=== PATIENT | female | born 1970 | race Caucasian/White ===

== ENCOUNTER 2018-12-11 05:04 | Emergency (ER) | payer OTHER, SELFPAY ==
[2018-12-11 05:10] VITALS: BP 127/80; PULSE 90; RESP 20; TEMP 36.4; O2SAT 96; BMI 20.7
--- NOTE | 2018-12-11 05:30 | ED.HA ---
HPI - Headache General Chief Complaint: Headache Stated Complaint: states migraine across forehead Time Seen by Provider: 12/11/18 05:24 Source: patient Mode of arrival: ambulatory Limitations: no limitations History of Present Illness HPI Narrative: Patient is a 48-year-old female history of migraine headaches presenting with worst headache. She states it started about yesterday 4:00 a.m. in the afternoon progressively gotten worse. 2 she took 2 sumatriptan which usually helps with her headaches however this 1 is not working. She is typically photosensitive however this 1 she is not photosensitive. She vomited twice last evening and twice this morning. No weakness numbness or tingling. No neck pain is afebrile. MD Complaint: headache Onset (ago): day(s) (1) Location: frontal Severity: severe Quality: throbbing Relieving factors: nothing Exacerbating factors: none Related Data Home Medications Medication Instructions Recorded Confirmed FERROUS SULFATE (#IRON) 648 mg PO Q DAY #0 01/08/11 Flaxseed Oil (#FLAXSEED OIL) 1,000 mg PO Q DAY #0 01/08/11 VITAMIN B COMPLEX ([id number]) 1 cap PO Q DAY #0 01/08/11 cetirizine 10 mg PO Q DAY #0 01/08/11 cholecalciferol (vitamin D3) 2,000 iu PO Q DAY #0 01/08/11 [Vitamin D3] niacin 50 mg PO Q DAY #0 01/08/11 Previous Rx's Medication Instructions Recorded norethindrone ac-eth estradiol 1 tab PO Q DAY #3 pac 08/28/16 [Loestrin 08/24 (21)] DIPHENHYDRAMINE/LIDO VISC/MAALOX 0 ml PO Q4HP PRN #100 ml 10/28/16 1:1:1~ penicillin V potassium 500 mg PO TID #30 tab 10/28/16 prednisone 0 PO QDAY #7 tab 11/27/16 sulfamethoxazole-trimethoprim 1 tab PO Q12H #20 tab 11/28/16 ondansetron 4 mg PO Q6-8H PRN #10 tab 12/11/18 Allergies Allergy/AdvReac Type Severity Reaction Status Date / Time No Allergy Information Allergy Verified 12/11/18 06:25 Available Review of Systems Review of Systems ROS Unobtainable: All systems reviewed & are unremarkable except as noted in HPI and below Constitutional Denies chills, Denies fever(s), Reports headache(s), Denies lethargy and Denies weakness Eyes Denies change in vision, Denies eye discharge, Denies irritation and Denies loss of vision ENT Ears, Nose, Mouth, and Throat: Denies change in voice, Reports headache(s), Denies neck pain and Denies sore throat Cardiovascular Denies chest pain, Denies irregular heart rhythm, Denies lightheadedness, Denies palpitations, Denies dyspnea, Denies dyspnea on exertion and Denies orthopnea Respiratory Denies cough, Denies dyspnea, Denies dyspnea on exertion and Denies wheezing Gastrointestinal Gastrointestinal: Denies abdominal pain, Denies change in bowel habits, Denies diarrhea, Denies nausea and Denies vomiting Genitourinary Denies hematuria, Denies flank pain, Denies urinary incontinence and Denies urinary urgency Musculoskeletal Denies neck pain Neurologic Reports headache(s), Denies loss of vision and Denies weakness Endocrine Denies palpitations Allergic/Immunologic Denies wheezing [facility] Medical History Migraine (Acute) Surgical History Status post delivery Social History Smoking Status: Never smoker Social History Smoking Status: Never smoker Exam Initial Vital Signs Initial Vital Signs: Vital Signs Temperature 97.5 F L 12/11/18 05:10 Pulse Rate 90 12/11/18 05:10 Respiratory Rate 20 12/11/18 05:10 Blood Pressure 127/80 12/11/18 05:10 Pulse Oximetry 96 12/11/18 05:10 GENERAL: The patient is is in pain in dark room HEENT: Head atraumatic,EOMI, pupils reactive, face symmetric, moist mucous membranes CARDIOVASCULAR: Regular rate and rhythm without murmurs, rubs or gallops. RESPIRATORY: Breath sounds equal bilaterally, no wheezes rales or rhonchi. ABDOMEN: Soft, nontender. Normoactive bowel sounds all 4 quadrants. No guarding or rebound. : No CVA tenderness EXTREMITIES: Normal range of motion, no clubbing or edema. Neurovascularly intact NEUROLOGICAL: Alert and oriented x4.Normal gait and speech. Cranial nerves II through XII grossly intact. her strength equal bilaterally able to push and pull equally. Lower extremity strength equal SKIN: Warm, dry, no laceration, no petechiae, no rashes or lesions. Course Orders Ordered: Discontinued Medications Diphenhydramine HCl (Benadryl) 25 mg IV NOW ONE Stop: 12/11/18 06:15 Last Admin: 12/11/18 06:16 Dose: 25 mg Hydromorphone HCl (Dilaudid) 0.5 mg IV NOW ONE Stop: 12/11/18 05:34 Last Admin: 12/11/18 05:49 Dose: 0.5 mg Ketorolac Tromethamine (Toradol) 15 mg IV NOW ONE Stop: 12/11/18 06:09 Last Admin: 12/11/18 06:14 Dose: 15 mg Ondansetron HCl (Zofran) 4 mg IV NOW ONE Stop: 12/11/18 05:46 Last Admin: 12/11/18 05:45 Dose: 4 mg Prochlorperazine (Compazine) 10 mg IV NOW ONE Stop: 12/11/18 06:15 Last Admin: 12/11/18 06:17 Dose: 10 mg Vital Signs - 8 hr 12/11/18 05:10 12/11/18 06:17 12/11/18 07:07 Temperature 97.5 F L Pulse Rate 90 90 67 Respiratory Rate 20 Blood Pressure 127/80 127/80 Blood Pressure [Right Arm] 99/66 Pulse Oximetry 96 MDM - Headache Lab Data Attestation: I reviewed the patient's lab results. Result diagrams: 12/11/18 05:15 12/11/18 05:15 Lab Results 12/11/18 12/11/18 Range/Units 05:15 05:15 WBC 8.0 (4.5-11.0) X10^3/uL RBC 4.53 (4.0-5.2) X10^6/uL Hgb 13.4 (12.0-16.0) g/dL Hct 40.4 (36-46) % MCV 89.2 (80-100) fL MCH 29.5 (26-34) PG MCHC 33.1 (30-36) % RDW 12.7 (11.6-14.8) % Plt Count 324 (150-400) X10^3/uL Neut % (Auto) 59.5 (50-75) % Lymph % (Auto) 30.3 (25-40) % [place] % (Auto) 7.2 (3-14) % Eos % (Auto) 2.5 (2-4) % Baso % (Auto) 0.5 (0-2) % Neut # (Auto) 4800 (9639-7338) /uL Lymph # (Auto) 2400 (2783-1808) /uL [place] # (Auto) 600 (0-900) /uL Eos # (Auto) 200 (0-450) /uL Baso # (Auto) 0 (0-100) /uL Sodium 137 (137-145) mmol/L Potassium 3.9 (3.4-5.1) mmol/L Chloride 102 (98-107) mmol/L Carbon Dioxide 28 (22-32) mmol/L BUN 13 (7-17) mg/dL Creatinine 0.80 (0.52-1.04) mg/dL Estimated GFR > 60.0 (>60) mL/min BUN/Creatinine Ratio 16.3 (6-22) Glucose 113 H (70-100) mg/dL Calcium 9.0 (8.4-10.2) mg/dL Total Bilirubin 0.7 (0.2-1.3) mg/dL AST 27 (14-36) IU/L ALT 20 (9-52) IU/L Alkaline Phosphatase 39 (38-126) U/L Total Protein 7.3 (6.3-8.2) g/dL Albumin 3.9 (3.5-5.0) g/dL Globulin 3.4 (1.7-4.1) g/dL Albumin/Globulin Ratio 1.1 (1.0-2.8) Imaging Data CT scan - head: 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 Ethmoid sinus disease. MDM Narrative Medical decision making narrative: Patient feeling a little bit better after Dilaudid but immediately started vomiting. Head CT blood work reassuring. Now given migraine cocktail Toradol Compazine Benadryl. The patient is now feeling much better feels ready and able to go home. Tolerating fluids. Discharge Plan Departure Patient Disposition: Home Clinical Impression: Migraine Qualifiers: Migraine type: other Status migrainosus presence: without status migrainosus Intractability: not intractable Qualified Code(s): G43.809 - Other migraine, not intractable, without status migrainosus Discharge Date/Time: 12/11/18 07:26 Interventions: ED Discharge Assessment Last Done: 12/11/18 07:26 Instructions: DI for Migraine Activity Restrictions/Additional Instructions: *You have been diagnosed with migraine headache *What to do: Rest, increase fluids as tolerated, he should start to feel better at home *Continue to take medications as directed Zofran 4 mg every 6-8 hours if needed for nausea or vomiting *Follow up with your primary care provider in 2-3 days *Return to ER if you should have increasing headache, weakness, persistent vomiting or any new, worsening or concerning symptoms Prescriptions: New ondansetron 4 mg tablet,disintegrating 4 mg PO Q6-8H PRN (Reason: nausea and vomiting) Qty: 10 RF: 0 No Action cetirizine 10 MG tablet 10 mg PO Q DAY Qty: 0 RF: 0 cholecalciferol (vitamin D3) [Vitamin D3] 2,000 UNIT capsule 2,000 iu PO Q DAY Qty: 0 RF: 0 FERROUS SULFATE (#IRON) 648 mg PO Q DAY Qty: 0 RF: 0 niacin 50 MG tablet 50 mg PO Q DAY Qty: 0 RF: 0 Flaxseed Oil (#FLAXSEED OIL) 1,000 mg PO Q DAY Qty: 0 RF: 0 VITAMIN B COMPLEX ([id number]) 1 cap PO Q DAY Qty: 0 RF: 0 norethindrone ac-eth estradiol [Loestrin 08/24 ()] 1 MG/20 MCG tablet 1 tab PO Q DAY Qty: 3 RF: 3 penicillin V potassium 500 MG tablet 500 mg PO TID Qty: 30 RF: 0 DIPHENHYDRAMINE/LIDO VISC/MAALOX 1:1:1~ 100 ML PO Q4HP PRNQty: 100 RF: 0 prednisone 20 MG tablet PO QDAY Qty: 7 RF: 0 sulfamethoxazole-trimethoprim 800 MG/160 MG tablet 1 tab PO Q12H Qty: 20 RF: 0 Referrals: Jessica Jarrett MD [Primary Care Provider] -
--- NOTE | 2018-12-11 05:33 | DI.CT.S_ITS ---
PROCEDURE: CT HEAD/BRAIN WO CON INDICATIONS: worse migraine TECHNIQUE: Noncontrast 4.5 mm thick angled axial sections acquired from the foramen magnum to the vertex, with coronal and sagittal reformats. For radiation dose reduction, the following was used: automated exposure control, adjustment of mA and/or kV according to patient size. COMPARISON: None. FINDINGS: Image quality: Excellent. CSF spaces: Basal cisterns are patent. No extra-axial fluid collections. Ventricles are normal in size and shape. Brain: No midline shift. No intracranial masses or hemorrhage. [place]-white matter interface is normal. Skull and face: Calvarium and visualized facial bones are intact, without suspicious lesions. Sinuses: Bilateral ethmoid air cell opacification. There is also minimal left sphenoid sinus disease. Mastoids clear. IMPRESSION: No acute intracranial process. Mild paranasal sinus disease as above. Dictated by: Juan Pablo Branch M.D. on 12/11/2018 at 7:55 Approved by: Juan Pablo Branch M.D. on 12/11/2018 at 7:58
--- NOTE | 2018-12-11 05:37 | ED_ITS ---
HPI - Headache General Chief Complaint: Headache Stated Complaint: states migraine across forehead Time Seen by Provider: 12/11/18 05:24 Source: patient Mode of arrival: ambulatory Limitations: no limitations History of Present Illness HPI Narrative: Patient is a 48-year-old female history of migraine headaches presenting with worst headache. She states it started about yesterday 4:00 a.m. in the afternoon progressively gotten worse. 2 she took 2 sumatriptan which usually helps with her headaches however this 1 is not working. She is typically photosensitive however this 1 she is not photosensitive. She vomited twice last evening and twice this morning. No weakness numbness or tingling. No neck pain is afebrile. MD Complaint: headache Onset (ago): day(s) (1) Location: frontal Severity: severe Quality: throbbing Relieving factors: nothing Exacerbating factors: none Related Data Home Medications Medication Instructions Recorded Confirmed FERROUS SULFATE (#IRON) 648 mg PO Q DAY #0 01/08/11 Flaxseed Oil (#FLAXSEED OIL) 1,000 mg PO Q DAY #0 01/08/11 VITAMIN B COMPLEX ([id number]) 1 cap PO Q DAY #0 01/08/11 cetirizine 10 mg PO Q DAY #0 01/08/11 cholecalciferol (vitamin D3) 2,000 iu PO Q DAY #0 01/08/11 [Vitamin D3] niacin 50 mg PO Q DAY #0 01/08/11 Previous Rx's Medication Instructions Recorded norethindrone ac-eth estradiol 1 tab PO Q DAY #3 pac 08/28/16 [Loestrin 08/24 (21)] DIPHENHYDRAMINE/LIDO VISC/MAALOX 0 ml PO Q4HP PRN #100 ml 10/28/16 1:1:1~ penicillin V potassium 500 mg PO TID #30 tab 10/28/16 prednisone 0 PO QDAY #7 tab 11/27/16 sulfamethoxazole-trimethoprim 1 tab PO Q12H #20 tab 11/28/16 ondansetron 4 mg PO Q6-8H PRN #10 tab 12/11/18 Allergies Allergy/AdvReac Type Severity Reaction Status Date / Time No Allergy Information Allergy Verified 12/11/18 06:25 Available Review of Systems Review of Systems ROS Unobtainable: All systems reviewed & are unremarkable except as noted in HPI and below Constitutional Denies chills, Denies fever(s), Reports headache(s), Denies lethargy and Denies weakness Eyes Denies change in vision, Denies eye discharge, Denies irritation and Denies loss of vision ENT Ears, Nose, Mouth, and Throat: Denies change in voice, Reports headache(s), Denies neck pain and Denies sore throat Cardiovascular Denies chest pain, Denies irregular heart rhythm, Denies lightheadedness, Denies palpitations, Denies dyspnea, Denies dyspnea on exertion and Denies orthopnea Respiratory Denies cough, Denies dyspnea, Denies dyspnea on exertion and Denies wheezing Gastrointestinal Gastrointestinal: Denies abdominal pain, Denies change in bowel habits, Denies diarrhea, Denies nausea and Denies vomiting Genitourinary Denies hematuria, Denies flank pain, Denies urinary incontinence and Denies urinary urgency Musculoskeletal Denies neck pain Neurologic Reports headache(s), Denies loss of vision and Denies weakness Endocrine Denies palpitations Allergic/Immunologic Denies wheezing [facility] Medical History Migraine (Acute) Surgical History Status post delivery Social History Smoking Status: Never smoker Social History Smoking Status: Never smoker Exam Initial Vital Signs Initial Vital Signs: Vital Signs Temperature 97.5 F L 12/11/18 05:10 Pulse Rate 90 12/11/18 05:10 Respiratory Rate 20 12/11/18 05:10 Blood Pressure 127/80 12/11/18 05:10 Pulse Oximetry 96 12/11/18 05:10 GENERAL: The patient is is in pain in dark room HEENT: Head atraumatic,EOMI, pupils reactive, face symmetric, moist mucous membranes CARDIOVASCULAR: Regular rate and rhythm without murmurs, rubs or gallops. RESPIRATORY: Breath sounds equal bilaterally, no wheezes rales or rhonchi. ABDOMEN: Soft, nontender. Normoactive bowel sounds all 4 quadrants. No guarding or rebound. : No CVA tenderness EXTREMITIES: Normal range of motion, no clubbing or edema. Neurovascularly intact NEUROLOGICAL: Alert and oriented x4.Normal gait and speech. Cranial nerves II through XII grossly intact. her strength equal bilaterally able to push and pull equally. Lower extremity strength equal SKIN: Warm, dry, no laceration, no petechiae, no rashes or lesions. Course Orders Ordered: Discontinued Medications Diphenhydramine HCl (Benadryl) 25 mg IV NOW ONE Stop: 12/11/18 06:15 Last Admin: 12/11/18 06:16 Dose: 25 mg Hydromorphone HCl (Dilaudid) 0.5 mg IV NOW ONE Stop: 12/11/18 05:34 Last Admin: 12/11/18 05:49 Dose: 0.5 mg Ketorolac Tromethamine (Toradol) 15 mg IV NOW ONE Stop: 12/11/18 06:09 Last Admin: 12/11/18 06:14 Dose: 15 mg Ondansetron HCl (Zofran) 4 mg IV NOW ONE Stop: 12/11/18 05:46 Last Admin: 12/11/18 05:45 Dose: 4 mg Prochlorperazine (Compazine) 10 mg IV NOW ONE Stop: 12/11/18 06:15 Last Admin: 12/11/18 06:17 Dose: 10 mg Vital Signs - 8 hr 12/11/18 05:10 12/11/18 06:17 12/11/18 07:07 Temperature 97.5 F L Pulse Rate 90 90 67 Respiratory Rate 20 Blood Pressure 127/80 127/80 Blood Pressure [Right Arm] 99/66 Pulse Oximetry 96 MDM - Headache Lab Data Attestation: I reviewed the patient's lab results. Result diagrams: 12/11/18 05:15 12/11/18 05:15 Lab Results 12/11/18 12/11/18 Range/Units 05:15 05:15 WBC 8.0 (4.5-11.0) X10^3/uL RBC 4.53 (4.0-5.2) X10^6/uL Hgb 13.4 (12.0-16.0) g/dL Hct 40.4 (36-46) % MCV 89.2 (80-100) fL MCH 29.5 (26-34) PG MCHC 33.1 (30-36) % RDW 12.7 (11.6-14.8) % Plt Count 324 (150-400) X10^3/uL Neut % (Auto) 59.5 (50-75) % Lymph % (Auto) 30.3 (25-40) % [place] % (Auto) 7.2 (3-14) % Eos % (Auto) 2.5 (2-4) % Baso % (Auto) 0.5 (0-2) % Neut # (Auto) 4800 (4877-6430) /uL Lymph # (Auto) 2400 (5489-9319) /uL [place] # (Auto) 600 (0-900) /uL Eos # (Auto) 200 (0-450) /uL Baso # (Auto) 0 (0-100) /uL Sodium 137 (137-145) mmol/L Potassium 3.9 (3.4-5.1) mmol/L Chloride 102 (98-107) mmol/L Carbon Dioxide 28 (22-32) mmol/L BUN 13 (7-17) mg/dL Creatinine 0.80 (0.52-1.04) mg/dL Estimated GFR > 60.0 (>60) mL/min BUN/Creatinine Ratio 16.3 (6-22) Glucose 113 H (70-100) mg/dL Calcium 9.0 (8.4-10.2) mg/dL Total Bilirubin 0.7 (0.2-1.3) mg/dL AST 27 (14-36) IU/L ALT 20 (9-52) IU/L Alkaline Phosphatase 39 (38-126) U/L Total Protein 7.3 (6.3-8.2) g/dL Albumin 3.9 (3.5-5.0) g/dL Globulin 3.4 (1.7-4.1) g/dL Albumin/Globulin Ratio 1.1 (1.0-2.8) Imaging Data CT scan - head: 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 Ethmoid sinus disease. MDM Narrative Medical decision making narrative: Patient feeling a little bit better after Dilaudid but immediately started vomiting. Head CT blood work reassuring. Now given migraine cocktail Toradol Compazine Benadryl. The patient is now feeling much better feels ready and able to go home. Tolerating fluids. Discharge Plan Departure Patient Disposition: Home Clinical Impression: Migraine Qualifiers: Migraine type: other Status migrainosus presence: without status migrainosus Intractability: not intractable Qualified Code(s): G43.809 - Other migraine, not intractable, without status migrainosus Discharge Date/Time: 12/11/18 07:26 Interventions: ED Discharge Assessment Last Done: 12/11/18 07:26 Instructions: DI for Migraine Activity Restrictions/Additional Instructions: *You have been diagnosed with migraine headache *What to do: Rest, increase fluids as tolerated, he should start to feel better at home *Continue to take medications as directed Zofran 4 mg every 6-8 hours if needed for nausea or vomiting *Follow up with your primary care provider in 2-3 days *Return to ER if you should have increasing headache, weakness, persistent vomiting or any new, worsening or concerning symptoms Prescriptions: New ondansetron 4 mg tablet,disintegrating 4 mg PO Q6-8H PRN (Reason: nausea and vomiting) Qty: 10 RF: 0 No Action cetirizine 10 MG tablet 10 mg PO Q DAY Qty: 0 RF: 0 cholecalciferol (vitamin D3) [Vitamin D3] 2,000 UNIT capsule 2,000 iu PO Q DAY Qty: 0 RF: 0 FERROUS SULFATE (#IRON) 648 mg PO Q DAY Qty: 0 RF: 0 niacin 50 MG tablet 50 mg PO Q DAY Qty: 0 RF: 0 Flaxseed Oil (#FLAXSEED OIL) 1,000 mg PO Q DAY Qty: 0 RF: 0 VITAMIN B COMPLEX ([id number]) 1 cap PO Q DAY Qty: 0 RF: 0 norethindrone ac-eth estradiol [Loestrin 08/24 ()] 1 MG/20 MCG tablet 1 tab PO Q DAY Qty: 3 RF: 3 penicillin V potassium 500 MG tablet 500 mg PO TID Qty: 30 RF: 0 DIPHENHYDRAMINE/LIDO VISC/MAALOX 1:1:1~ 100 ML PO Q4HP PRNQty: 100 RF: 0 prednisone 20 MG tablet PO QDAY Qty: 7 RF: 0 sulfamethoxazole-trimethoprim 800 MG/160 MG tablet 1 tab PO Q12H Qty: 20 RF: 0 Referrals: Jessica Jarrett MD [Primary Care Provider] -
[2018-12-11 05:43] LABS: Add Manual Diff / Slide Review NO; Basophils Absolute Auto 0 /uL (0-100); Basophils Percent Auto 0.5 % (0-2); Eosinophils Absolute Auto 200 /uL (0-450); Eosinophils Percent Auto 2.5 % (2-4); Hematocrit 40.4 % (36-46); Hemoglobin 13.4 g/dL (12.0-16.0); Lymphocytes Absolute Auto 2400 /uL (1100-4500); Lymphocytes Percent Auto 30.3 % (25-40); Mean Corpuscular HGB Conc 33.1 % (30-36); Mean Corpuscular Hemoglobin 29.5 PG (26-34); Mean Corpuscular Volume 89.2 fL (80-100); Monocytes Absolute Auto 600 /uL (0-900); Monocytes Percent Auto 7.2 % (3-14); Neutrophils Absolute Auto 4800 /uL (1500-7000); Neutrophils Percent Auto 59.5 % (50-75); Platelet Count 324 X10^3/uL (150-400); Red Blood Cell Count 4.53 X10^6/uL (4.0-5.2); Red Cell Distribution Width 12.7 % (11.6-14.8)
[2018-12-11] MEDS: ONDANSETRON 4 MG/2 ML INJ IV (05:45)
[2018-12-11 05:48] LABS: Alanine Aminotransferase 20 IU/L (9-52); Albumin 3.9 g/dL (3.5-5.0); Albumin Globulin Ratio 1.1 (1.0-2.8); Alkaline Phosphatase 39 U/L (38-126); Aspartate Aminotransferase 27 IU/L (14-36); BUN Creatinine Ratio 16.3 (6-22); Bilirubin Total 0.7 mg/dL (0.2-1.3); Blood Urea Nitrogen 13 mg/dL (7-17); Carbon Dioxide 28 mmol/L (22-32); Chloride 102 mmol/L (98-107); Estimated Glomerular Filt Rate > 60.0 mL/min (>60); Globulin 3.4 g/dL (1.7-4.1); Glucose 113 mg/dL (70-100); HEMOLYSIS < 15 (0-50); Potassium 3.9 mmol/L (3.4-5.1); Sodium 137 mmol/L (137-145); Total Protein 7.3 g/dL (6.3-8.2)
[2018-12-11] MEDS: HYDROMORPHONE 1 MG INJ 0.5 MG IV (05:49)
[2018-12-11] MEDS: KETOROLAC 60 MG/2 ML VIAL 15 MG IV (06:14)
[2018-12-11] MEDS: diphenhydrAMINE 50 MG/ML VIAL 25 MG IV (06:16)
[2018-12-11 06:17] VITALS: BP 127/80; PULSE 90
[2018-12-11] MEDS: PROCHLORPERAZINE 10 MG/2 ML VIAL IV (06:17)
[2018-12-11 07:07] VITALS: BP 99/66; PULSE 67
== END 2018-12-11 07:26 | disposition home or self-care (01) ==
PROVIDERS: Emergency Provider Emergency Medicine; Family Provider Family Medicine; PCP Family Medicine
DX: G43.809 Other migraine, not intractable, without status migrainosus (principal); R11.0 Nausea
CPT/HCPCS: 36591; 70450; 80053; 85025; 96374; 96375; 99282; 99284; J0780; J1170; J1200; J1885; J2405

== ENCOUNTER → 2018-12-17 07:07 | Outpatient (CLI) | payer OTHER, SELFPAY ==
[2018-12-17 07:24] LABS: Add Manual Diff / Slide Review NO; Basophils Absolute Auto 100 /uL (0-100); Basophils Percent Auto 1.2 % (0-2); Eosinophils Absolute Auto 300 /uL (0-450); Eosinophils Percent Auto 6.3 % (2-4); Hematocrit 38.1 % (36-46); Hemoglobin 12.9 g/dL (12.0-16.0); Lymphocytes Absolute Auto 2000 /uL (1100-4500); Lymphocytes Percent Auto 40.9 % (25-40); Mean Corpuscular HGB Conc 33.9 % (30-36); Mean Corpuscular Hemoglobin 29.9 PG (26-34); Mean Corpuscular Volume 88.1 fL (80-100); Monocytes Absolute Auto 300 /uL (0-900); Monocytes Percent Auto 6.7 % (3-14); Neutrophils Absolute Auto 2200 /uL (1500-7000); Neutrophils Percent Auto 44.9 % (50-75); Platelet Count 314 X10^3/uL (150-400); Red Blood Cell Count 4.33 X10^6/uL (4.0-5.2); Red Cell Distribution Width 12.6 % (11.6-14.8); White Blood Cell Count 4.9 X10^3/uL (4.5-11.0)
[2018-12-17 07:38] LABS: Alanine Aminotransferase 23 IU/L (9-52); Albumin 4.3 g/dL (3.5-5.0); Albumin Globulin Ratio 1.3 (1.0-2.8); Alkaline Phosphatase 37 U/L (38-126); Aspartate Aminotransferase 24 IU/L (14-36); BUN Creatinine Ratio 13.8 (6-22); Bilirubin Total 0.5 mg/dL (0.2-1.3); Blood Urea Nitrogen 11 mg/dL (7-17); Calcium 9.1 mg/dL (8.4-10.2); Carbon Dioxide 29 mmol/L (22-32); Chloride 101 mmol/L (98-107); Cholesterol 230 mg/dL (140-199); Estimated Glomerular Filt Rate > 60.0 mL/min (>60); Globulin 3.4 g/dL (1.7-4.1); Glucose 93 mg/dL (70-100); HDL Cholesterol 57 mg/dL (40-60); HEMOLYSIS < 15 (0-50); LDL Cholesterol Calculated 158 mg/dL (<100); Potassium 4.4 mmol/L (3.4-5.1); Sodium 138 mmol/L (137-145); Total Protein 7.7 g/dL (6.3-8.2); Triglycerides 76 mg/dL (35-150)
[2018-12-17 08:13] LABS: Thyroid Stimulating Hormone 2.64 uIU/mL (0.47-4.68)
== END ==
PROVIDERS: PCP Family Medicine; Visit Provider Family Medicine
DX: Z00.00 Encounter for general adult medical examination without abnormal findings (principal)
CPT/HCPCS: 36415; 80053; 80061; 84443; 85025

== ENCOUNTER → 2019-01-18 18:46 | Outpatient (CLI) | payer OTHER, SELFPAY | PROVIDERS: PCP Family Medicine; Visit Provider Physician Assistant | DX: J02.9 Acute pharyngitis, unspecified (principal) | CPT/HCPCS: 87070 ==

== ENCOUNTER 2019-01-20 15:32 | Emergency (ER) | payer OTHER, SELFPAY ==
[2019-01-20 15:39] VITALS: BP 117/80; PULSE 77; RESP 17; TEMP 36.6; O2SAT 99
--- NOTE | 2019-01-20 15:41 | ED.HA ---
HPI - Headache <Chastity Pizano PA-C - Last Filed: 01/20/19 20:10> General Chief Complaint: Headache Stated Complaint: MIGRAINE Time Seen by Provider: 01/20/19 15:33 Source: patient Mode of arrival: ambulatory Limitations: no limitations History of Present Illness HPI Narrative: This 48-year-old female comes to ED secondary to migraine headache. She states that she has had an upper respiratory infection since Saturday and has actually been seen at urgent care and her PCP today, starting antibiotic. Due to this she has not had much appetite, did not eat dinner last night and had a piece of toast this morning, tried to drink some fluids but had vomiting. She states it is common for her to have a migraine start when she does not eat normally. She states this is a typical migraine for her with bilateral frontal pain, light sensitivity, nausea and vomiting. She states she has had some right-sided earache with her upper respiratory infection, no worse today. No sinus pain. She denies fever. She denies sore throat. She has had some cough, but no wheeze or dyspnea. No new rash, musculoskeletal pain or other new symptoms review today. She denies possibility of . Related Data Home Medications Medication Instructions Recorded Confirmed FERROUS SULFATE (#IRON) 648 mg PO Q DAY #0 01/08/11 01/18/19 cetirizine 10 mg PO Q DAY #0 01/08/11 01/18/19 cholecalciferol (vitamin D3) 2,000 iu PO Q DAY #0 01/08/11 01/18/19 [Vitamin D3] norethindrone-e.estradiol-iron 1 tab PO DAILY 01/20/19 01/20/19 [June08/24 (28)] sumatriptan succinate 100 mg PO PRN PRN 01/20/19 01/20/19 Previous Rx's Medication Instructions Recorded amoxicillin 500 mg capsule 500 mg PO BID 10 Days #20 cap 01/18/19 Allergies Allergy/AdvReac Type Severity Reaction Status Date / Time sulfamethoxazole AdvReac Mild Insomnia Verified 01/18/19 10:08 [From Bactrim] trimethoprim [From Bactrim] AdvReac Mild Insomnia Verified 01/18/19 10:08 Review of Systems <Chastity Pizano PA-C - Last Filed: 01/20/19 20:10> Review of Systems ROS Unobtainable: All systems reviewed & are unremarkable except as noted in HPI and below PFSH <Chastity Pizano PA-C - Last Filed: 01/20/19 20:10> Medical History Migraine (Acute) Surgical History Status post delivery Social History Smoking Status: Never smoker Social History Smoking Status: Never smoker Exam <Chastity Pizano PA-C - Last Filed: 01/20/19 20:10> Narrative Exam Narrative: GENERAL APPEARANCE: Patient sitting comfortably, in no distress. HEENT: PERRL, EOMI, TMs are dull, normal oropharynx aside from PND noted, no sinus TTP NECK: Supple, no lymphadenopathy LUNGS: Clear to auscultation bilaterally, occasional cough on exam. HEART: Rate and rhythm regular without murmur, normal S1 and S2, no S3 or S4. ABDOMEN: Soft, NT, ND, + BS x 4 quadrants NEUROLOGIC: Alert and oriented, normal speech, gait and coordination. MUSCULOSKELETAL: Full Csp AROM DERMATOLOGIC: No exanthem noted Initial Vital Signs Initial Vital Signs: Vital Signs Temperature 97.9 F 01/20/19 15:39 Pulse Rate 77 01/20/19 15:39 Respiratory Rate 17 01/20/19 15:39 Blood Pressure 117/80 01/20/19 15:39 Pulse Oximetry 99 01/20/19 15:39 <Moises Cowan DO - Last Filed: 01/21/19 08:22> Initial Vital Signs Initial Vital Signs: Vital Signs Temperature 97.9 F 01/20/19 15:39 Pulse Rate 77 01/20/19 15:39 Respiratory Rate 17 01/20/19 15:39 Blood Pressure 117/80 01/20/19 15:39 Pulse Oximetry 99 01/20/19 15:39 Course <Chastity Pizano PA-C - Last Filed: 01/20/19 20:10> Additional Information: Patient had resolution of her nausea, but not much pain relief after Toradol. After a small dose of Dilaudid, she reported 90% relief. States this was same combination of medicines that helped her when last here with migraine. Discharge home to rest with her driving, agreed to return if any acutely worsening or new symptoms Orders Ordered: Discontinued Medications Diphenhydramine HCl (Benadryl) 25 mg IV NOW ONE Stop: 01/20/19 15:43 Last Admin: 01/20/19 16:33 Dose: 25 mg Hydromorphone HCl (Dilaudid) 0.5 mg IV NOW ONE Stop: 01/20/19 17:30 Last Admin: 01/20/19 17:39 Dose: 0.5 mg Sodium Chloride (Normal Saline 0.9%) 1,000 mls @ 1,000 mls/hr IV BOLUS ONE Stop: 01/20/19 16:41 Last Infusion: 01/20/19 18:32 Dose: 0 mls/hr Admin: 01/20/19 16:34 Dose: 1,000 mls/hr Ketorolac Tromethamine (Toradol) 30 mg IV NOW ONE Stop: 01/20/19 15:43 Last Admin: 01/20/19 16:34 Dose: 30 mg Prochlorperazine (Compazine) 10 mg IV NOW ONE Stop: 01/20/19 15:43 Last Admin: 01/20/19 16:33 Dose: 10 mg Vital Signs - 8 hr 01/20/19 15:39 01/20/19 18:00 Temperature 97.9 F Pulse Rate 77 78 Respiratory Rate 17 Blood Pressure 117/80 Blood Pressure [Left Arm] 102/64 Pulse Oximetry 99 95 <Moises Cowan DO - Last Filed: 01/21/19 08:22> Orders Ordered: Discontinued Medications Diphenhydramine HCl (Benadryl) 25 mg IV NOW ONE Stop: 01/20/19 15:43 Last Admin: 01/20/19 16:33 Dose: 25 mg Hydromorphone HCl (Dilaudid) 0.5 mg IV NOW ONE Stop: 01/20/19 17:30 Last Admin: 01/20/19 17:39 Dose: 0.5 mg Sodium Chloride (Normal Saline 0.9%) 1,000 mls @ 1,000 mls/hr IV BOLUS ONE Stop: 01/20/19 16:41 Last Infusion: 01/20/19 18:32 Dose: 0 mls/hr Admin: 01/20/19 16:34 Dose: 1,000 mls/hr Ketorolac Tromethamine (Toradol) 30 mg IV NOW ONE Stop: 01/20/19 15:43 Last Admin: 01/20/19 16:34 Dose: 30 mg Prochlorperazine (Compazine) 10 mg IV NOW ONE Stop: 01/20/19 15:43 Last Admin: 01/20/19 16:33 Dose: 10 mg Vital Signs - 8 hr 01/20/19 15:39 01/20/19 18:00 Temperature 97.9 F Pulse Rate 77 78 Respiratory Rate 17 Blood Pressure 117/80 Blood Pressure [Left Arm] 102/64 Pulse Oximetry 99 95 MDM - Headache <Chastity Pizano PA-C - Last Filed: 01/20/19 20:10> Lab Data Result diagrams: 01/20/19 16:28 01/20/19 16:28 Lab Results 01/20/19 01/20/19 Range/Units 16:28 16:28 WBC 8.4 (4.5-11.0) X10^3/uL RBC 4.16 (4.0-5.2) X10^6/uL Hgb 12.6 (12.0-16.0) g/dL Hct 36.3 (36-46) % MCV 87.1 (80-100) fL MCH 30.3 (26-34) PG MCHC 34.8 (30-36) % RDW 12.6 (11.6-14.8) % Plt Count 321 (150-400) X10^3/uL Neut % (Auto) 72.5 (50-75) % Lymph % (Auto) 15.6 L (25-40) % Woodson % (Auto) 10.6 (3-14) % Eos % (Auto) 0.9 L (2-4) % Baso % (Auto) 0.4 (0-2) % Neut # (Auto) 6100 (1856-6475) /uL Lymph # (Auto) 1300 (5231-3674) /uL Woodson # (Auto) 900 (0-900) /uL Eos # (Auto) 100 (0-450) /uL Baso # (Auto) 0 (0-100) /uL Sodium 137 (137-145) mmol/L Potassium 4.5 (3.4-5.1) mmol/L Chloride 99 (98-107) mmol/L Carbon Dioxide 29 (22-32) mmol/L BUN 7 (7-17) mg/dL Creatinine 0.50 L (0.52-1.04) mg/dL Estimated GFR > 60.0 (>60) mL/min BUN/Creatinine Ratio 14.0 (6-22) Glucose 107 H (70-100) mg/dL Calcium 8.9 (8.4-10.2) mg/dL <Moises Cowan, DO - Last Filed: 01/21/19 08:22> Lab Data Lab Results 01/20/19 01/20/19 Range/Units 16:28 16:28 WBC 8.4 (4.5-11.0) X10^3/uL RBC 4.16 (4.0-5.2) X10^6/uL Hgb 12.6 (12.0-16.0) g/dL Hct 36.3 (36-46) % MCV 87.1 (80-100) fL MCH 30.3 (26-34) PG MCHC 34.8 (30-36) % RDW 12.6 (11.6-14.8) % Plt Count 321 (150-400) X10^3/uL Neut % (Auto) 72.5 (50-75) % Lymph % (Auto) 15.6 L (25-40) % Woodson % (Auto) 10.6 (3-14) % Eos % (Auto) 0.9 L (2-4) % Baso % (Auto) 0.4 (0-2) % Neut # (Auto) 6100 (8884-7082) /uL Lymph # (Auto) 1300 (0395-2798) /uL Woodson # (Auto) 900 (0-900) /uL Eos # (Auto) 100 (0-450) /uL Baso # (Auto) 0 (0-100) /uL Sodium 137 (137-145) mmol/L Potassium 4.5 (3.4-5.1) mmol/L Chloride 99 (98-107) mmol/L Carbon Dioxide 29 (22-32) mmol/L BUN 7 (7-17) mg/dL Creatinine 0.50 L (0.52-1.04) mg/dL Estimated GFR > 60.0 (>60) mL/min BUN/Creatinine Ratio 14.0 (6-22) Glucose 107 H (70-100) mg/dL Calcium 8.9 (8.4-10.2) mg/dL Discharge Plan Departure Patient Disposition: Home Clinical Impression: Migraine Qualifiers: Migraine type: unspecified Status migrainosus presence: without status migrainosus Intractability: not intractable Qualified Code(s): G43.909 - Migraine, unspecified, not intractable, without status migrainosus Discharge Date/Time: 01/20/19 18:46 Interventions: ED Discharge Assessment Last Done: 01/20/19 18:33 Instructions: DI for Migraine Activity Restrictions/Additional Instructions: please rest at home in a dark quiet place today, no ?brain activity? or screen time. Please continue to hydrate and eat normally. Return as we talked about if you have any acutely worsening symptoms, otherwise continue your current medicines including what you have been prescribed for your respiratory infection. Prescriptions: No Action amoxicillin 500 mg capsule 500 mg PO BID 10 Days Qty: 20 RF: 0 cetirizine 10 MG tablet 10 mg PO Q DAY Qty: 0 RF: 0 cholecalciferol (vitamin D3) [Vitamin D3] 2,000 UNIT capsule 2,000 iu PO Q DAY Qty: 0 RF: 0 FERROUS SULFATE (#IRON) 648 mg PO Q DAY Qty: 0 RF: 0 sumatriptan succinate 100 mg tablet 100 mg PO PRN PRN (Reason: Migraine Headache) RF: 0 norethindrone-e.estradiol-iron [June FE 08/24 (28)] 1 mg-20 mcg (21)/75 mg (7) tablet 1 tab PO DAILY RF: 0 Referrals: Jessica Jarrett MD [Primary Care Provider] - <Moises Cowan DO - Last Filed: 01/21/19 08:22> [facility] Att[facility]: I was immediately available in the department for consultation. Documentation has been reviewed. I agree with assessment and plan.
[2019-01-20] MEDS: diphenhydrAMINE 50 MG/ML VIAL 25 MG IV (16:33)
[2019-01-20] MEDS: PROCHLORPERAZINE 10 MG/2 ML VIAL IV (16:33)
[2019-01-20] MEDS: SODIUM CHLORIDE 0.9% 1,000 ML 1000 ML IV (16:34)
[2019-01-20] MEDS: KETOROLAC 60 MG/2 ML VIAL 30 MG IV (16:34)
[2019-01-20 16:36] LABS: Add Manual Diff / Slide Review NO; Basophils Absolute Auto 0 /uL (0-100); Basophils Percent Auto 0.4 % (0-2); Eosinophils Absolute Auto 100 /uL (0-450); Eosinophils Percent Auto 0.9 % (2-4); Hematocrit 36.3 % (36-46); Hemoglobin 12.6 g/dL (12.0-16.0); Lymphocytes Absolute Auto 1300 /uL (1100-4500); Lymphocytes Percent Auto 15.6 % (25-40); Mean Corpuscular HGB Conc 34.8 % (30-36); Mean Corpuscular Hemoglobin 30.3 PG (26-34); Mean Corpuscular Volume 87.1 fL (80-100); Monocytes Absolute Auto 900 /uL (0-900); Monocytes Percent Auto 10.6 % (3-14); Neutrophils Absolute Auto 6100 /uL (1500-7000); Neutrophils Percent Auto 72.5 % (50-75); Platelet Count 321 X10^3/uL (150-400); Red Blood Cell Count 4.16 X10^6/uL (4.0-5.2); Red Cell Distribution Width 12.6 % (11.6-14.8); White Blood Cell Count 8.4 X10^3/uL (4.5-11.0)
[2019-01-20 16:48] LABS: Blood Urea Nitrogen 7 mg/dL (7-17); Calcium 8.9 mg/dL (8.4-10.2); Carbon Dioxide 29 mmol/L (22-32); Chloride 99 mmol/L (98-107); Estimated Glomerular Filt Rate > 60.0 mL/min (>60); Glucose 107 mg/dL (70-100); Sodium 137 mmol/L (137-145)
[2019-01-20 16:51] LABS: HEMOLYSIS 92 (0-50)
[2019-01-20 16:52] LABS: Potassium 4.5 mmol/L (3.4-5.1)
[2019-01-20] MEDS: HYDROMORPHONE 1 MG INJ 0.5 MG IV (17:39)
[2019-01-20 18:00] VITALS: BP 102/64; PULSE 78; O2SAT 95
--- NOTE | 2019-01-20 18:45 | PC.NURSE ---
pt states she is feeling a little weak in her legs, pt stated she thinks its the benadryl. i explained that if she needed more time she was welcome to stay, she is going home. reminded her if she feel uncomfortable to come back. pt agreed.
== END 2019-01-20 18:46 | disposition home or self-care (01) ==
PROVIDERS: Emergency Provider Internal Medicine; PCP Family Medicine
DX: G43.909 Migraine, unspecified, not intractable, without status migrainosus (principal)
CPT/HCPCS: 36591; 80048; 85025; 96361; 96374; 96375; 99283; 99284; J0780; J1170; J1200; J1885

== ENCOUNTER 2019-06-26 14:30 | Outpatient (RCR) | payer OTHER, SELFPAY ==
--- NOTE | 2019-05-07 08:47 | PT.OIE ---
Current Diagnoses Pain in right knee (05/06/19) Past Medical History (Last Reviewed 01/20/19 @ 15:59 by Chastity Pizano PA-C) Migraine (Acute) Past Surgical History (Last Reviewed 01/20/19 @ 15:59 by Chastity Pizano PA-C) Status post delivery Visit Care Team Role Provider Type Jessica Jarrett MD Attending Provider Physician Primary Care Provider Specialty: [facility] Address: [address] [place] [address], [facility] [place], [place], [facility] Email: [email or web address] Physical Therapy Initial Evaluation PT-OP-A Visit Information Start: 05/07/19 07:54 Freq: Status: Active Protocol: Document 05/06/19 14:30 HH (Rec: 05/07/19 08:46 HH [email or web address]) Out-Patient Physical Therapy Visit Information Visit Information Visit Type Initial Evaluation Visit Start Time 14:30 Visit Stop Time 15:15 Total Visit Minutes 45 Visit Number 1 Evaluation Information Evaluation Date 05/06/19 PT-OP-B Current Condition Start: 05/07/19 07:54 Freq: Status: Active Protocol: Document 05/06/19 14:30 HH (Rec: 05/07/19 08:46 HH [email or web address]) Current Condition History of Current Condition Onset Date Summer 2017 Current Complaints R knee pain, L achilles pain, unable to return to cycling and swimming History of Current Condition Pt is a 48 yo female who presents to clinic with c/o R knee pain since last summer. Pt described her pain located at posterior- medial border of patella. Pain occurs only after repetitive cycling/ swimming with breast stroke. She noticed her pain primarily happen with knee flexion such as sit to stand from low chair, cycling and paddling during swimming. It goes away with inverted foot during cycling. Pt stated she had chronic L achilles pain/ tendonopathy since 3-4 years ago and had PT from this December- March, but she said it did not help. Pt is a very active individual who used to bike and run everyday, and swim 3-4 times a week. She currently just run and play tennis only due to her knee pain. Prior Treatments and Tests Had PT from December-Mar for achilles tendonopathy but unsuccessful. Treatment Goals Patient/Caregiver Goals 1. to be able to bike and swim again without knee pain 2. able to exercises without L achilles pain. Prior Functional Status Baseline Function- ADL's Independent Baseline Function- Mobility Independent Current Functional Impairments (Reported) Functional Limitations- Recreation/ Currently unable to bike on a [employer] regular bike/ stationary bike unable to swim with breast stroke Functional Limitations- Other R knee pain during STS from low surface. PT-OP-C Subjective Start: 05/07/19 07:54 Freq: Status: Active Protocol: Document 05/06/19 14:30 HH (Rec: 05/07/19 08:46 HH [email or web address]) OP-PT Subjective Patient Comments Patient Comments My knee pain stops me from biking and swimming Patient Questionnaires Lower Extremity Functional Scale LEFS Score 76 LEFS Impairment 1 to 19% Impaired (Score 63-79 ) OP-PT Pain Assessment Location R knee pain Pain Location Details posteriormedial border Intensity 4 Scale Used Numeric (1 - 10) Description Aching,Dull,Pressure Frequency Frequent Pain Aggravating Factors Exercise Other Pain Aggravating Factors with repetitive knee flexion Pain Alleviating Factors Inactivity PT-OP-F Manual Assessment Start: 05/07/19 07:54 Freq: Status: Active Protocol: Document 05/06/19 14:30 HH (Rec: 05/07/19 08:46 HH [email or web address]) Manual Assessments Soft Tissue Assessment Soft Tissue Mobility Assessment R lateral quad hypertrophy compared to L thigh R medial quad hypotrophy compared to L thigh Joint Mobility Assessment Joint Mobility Assessment excessive lateral glide of R patella during terminal knee extension PT-OP-G Mobility & Gait Start: 05/07/19 07:54 Freq: Status: Active Protocol: Document 05/06/19 14:30 HH (Rec: 05/07/19 08:46 HH [email or web address]) OP Gait Assessment Comments Gait Comments noticeable B knee valgus thrust, along with increased pronation on L ankle during loading response PT-OP-J Posture/Palpation/Skin Start: 05/07/19 07:54 Freq: Status: Active Protocol: Document 05/06/19 14:30 HH (Rec: 05/07/19 08:46 HH [email or web address]) Posture Evaluation Position Standing Evaluation View Posterior Weight Distribution Decreased Wt.Bear on (L) Hip Posture (R) Internally Rotated Ankle/Foot Posture (L) Pronated Foot Arch (R) Medium Arch,(L) Low Arch Palpation Assessment Location L achilles Palpation Location insertional achilles Palpation Findings Tenderness Palpation Details significant tenderness to pressure PT-OP-K Range of Motion Start: 05/07/19 07:54 Freq: Status: Active Protocol: Document 05/06/19 14:30 HH (Rec: 05/07/19 08:46 [email or web address]) Hip Goniometric Range of Motion Hip Right Active Hip ROM WFL Yes Internal Rotation 35 External Rotation 35 Left Active Hip ROM WFL Yes Internal Rotation 40 External Rotation 25 Knee Goniometric Range of Motion Knee Right Knee ROM WFL Yes Left Knee ROM WFL Yes Ankle and Foot Goniometric Range of Motion Ankle and Foot Right Active Ankle/Foot ROM WFL Yes Testing Position Supine Dorsiflexion with Knee Extended 15 Plantarflexion 55 Left Active Ankle/Foot ROM WFL Yes Testing Position Supine Dorsiflexion with Knee Extended 13 Plantarflexion 45 PT-OP-L Special Tests Start: 05/07/19 07:54 Freq: Status: Active Protocol: Document 05/06/19 14:30 HH (Rec: 05/07/19 08:46 [email or web address]) Special Tests Knee Special Tests Lateral Pivot Shift Test Results -ve Jose Test Test Results -VE Apley's Compression Test Results -VE Varus- 25 Degrees Test Results -VE Varus- 0 Degrees Test Results -VE Valgus- 25 Degrees Test Results -VE Valgus- 0 Degrees Test Results -VE PT-OP-M Strength Start: 05/07/19 07:54 Freq: Status: Active Protocol: Document 05/06/19 14:30 HH (Rec: 05/07/19 08:46 [email or web address]) Hip Strength Hip Manual Muscle Testing Right Flexion (L2) 5 Normal Extension (S1) 5 Normal Abduction 5 Normal Adduction 5 Normal Left Flexion (L2) 4 Good Extension (S1) 4 Good Abduction 4 Good Adduction 4+ Good+ Knee Strength Knee Manual Muscle Testing Right Flexion (S2) 4+ Good+ Extension (L3) 4+ Good+ Left Flexion (S2) 5 Normal Extension (L3) 5 Normal PT-OP-Q Treatments Start: 05/07/19 07:54 Freq: Status: Active Protocol: Document 05/06/19 14:30 HH (Rec: 05/07/19 08:46 [email or web address]) Therapeutic Exercises Standing Exercises preswing push off Side left Comments with MTP extension and dorsiflexion to push off. Manual Therapy Treatment Taping lateral support Body Location Tape anchor from R lateral quad to medial calf Treatment Focus provide patella shift medially Type of Tape Kinesio Tape Comments 2 I strips Self-Care/Home Management Treatment Education Patient Education Body Mechanics,Home Exercise Program,Posture Other Education HEP on preswing pattern PT-OP-T Assessment and Plan Start: 05/07/19 07:54 Freq: Status: Active Protocol: Document 05/06/19 14:30 HH (Rec: 05/07/19 08:46 HH [email or web address]) Physical Therapy Assessment Rehab Potential Rehabilitation Potential Excellent Evaluation Complexity Number of Personal Factors/Comorbidities 0 Number of Body Systems Impaired 1-2 Clinical Presentation at Evaluation Stable Impairments Impairments Activity Tolerance,Balance, Functional Activities, Functional Mobility,Gait,Pain, Posture,ROM,Soft Tissue Mobility,Strength Goals HEP Impairment Pt does not have a HEP Senior Care Goal (LTG) Pt will comply to HEP safely and independently to improve her body awareness and body mechanics for injury prevention LTG Duration 8 weeks hip strength Impairment decreased L hip strength Senior Care Goal (LTG) Pt will improve her L hip strength by 1 MMT grade to improve her L hip stability during gait/ running and sports related activities.. LTG Duration 8 weeks return to sports Impairment pt is unable to bike/ swim at this point Short Term Goal (STG) Pt will bike with regular bike / stationary bike and swim with breast stroke 2-3 times/ week with R knee pain no more than 2 STG Duration 4 weeks Heating Worker Goal (LTG) Pt will bike with regular bike / stationary bike and swim with breast stroke 4-5 times/ week without R knee pain LTG Duration 8 weeks LEFS Impairment pt scores 76 for LEFS Heating Worker Goal (LTG) Pt will score 80 for LEFS to improve her quality of life LTG Duration 8 weeks Assessment Summary Assessment Pt is a 48 yo very active female who presents to clinic with R knee pain and chronic L achilles pain. Pt had previous PT for L achilles but it did not help. Upon assessment, pt is negative for Appley, Jose, valgus, varus and standing lateral pivot tests which rule out possible menicus tear. Pt described her pain only occure after repetitive knee flexion and located at posteriormedial border of R patella. However, there's noticeable R lateral quad hypertrophy and VMO atrophy compared to her L quads, along with lateral shift of patella during TKE. Pt also has significant knee valgus L worse than R, along with pronated feet L>R during squatting activities. She also tends to weight shift to her R side during eccentric movements possbily due to her chronic L achilles pain. In addition, there's weakness at L hip stabilizers who also eports her R knee and L achilles does feel better with a L heel wedge during squat. Pt will benefit from skilled therapy to improve her VMO strengthening on R side, achilles strengthening and flexibility training, L hip strengthening, gait training, return to sports training. Physical Therapy Plan Frequency and Duration Frequency of Treatment 2x/Week Duration of Treatment 8 weeks Plan of Care Start Date 05/07/19 Plan of Care End Date 07/06/19 Therapeutic Interventions Therapeutic Interventions Balance Training,Gait Training ,Home Exercise Program,Joint Mobilizations,Manual Therapy, Neuromuscular Re-education, Patient/Caregiver Education, Self-Care/Home Management,Soft Tissue Mobilization,Taping, Therapeutic Activities, Therapeutic Exercises Modalities Cold Pack/Ice Massage,Electric Stimulation,Hot Packs, Infrared Therapy,Traction- Mechanical,Ultrasound Next Visit Focus/Plan Next Note Type Treatment Note Next Visit Plan review launch, KT tape start with launch on L side, wedge on big toe squat with wedge on L heel, wedge on R medial heel calf raise on L VMO strength hip stab, ER strengthening
--- NOTE | 2019-05-08 16:15 | PT.OTN ---
Current Diagnoses Pain in right knee (05/08/19) Physical Therapy Treatment Note PT-OP-A Visit Information Start: 05/07/19 07:54 Freq: Status: Active Protocol: Document 05/08/19 13:48 HH (Rec: 05/08/19 16:15 HH [email or web address]) Out-Patient Physical Therapy Visit Information Visit Information Visit Type Treatment Note Visit Start Time 13:48 Visit Stop Time 14:32 Total Visit Minutes 44 Visit Number 2 Number of PSYCHOLOGIST PRIVATE PRACTICE Visits 0 PT-OP-B Current Condition Start: 05/07/19 07:54 Freq: Status: Active Protocol: Document 05/06/19 14:30 HH (Rec: 05/07/19 08:46 HH [email or web address]) Current Condition History of Current Condition Onset Date Summer 2017 Current Complaints R knee pain, L achilles pain, unable to return to cycling and swimming History of Current Condition Pt is a 48 yo female who presents to clinic with c/o R knee pain since last summer. Pt described her pain located at posterior- medial border of patella. Pain occurs only after repetitive cycling/ swimming with breast stroke. She noticed her pain primarily happen with knee flexion such as sit to stand from low chair, cycling and paddling during swimming. It goes away with inverted foot during cycling. Pt stated she had chronic L achilles pain/ tendonopathy since 3-4 years ago and had PT from this December- March, but she said it did not help. Pt is a very active individual who used to bike and run everyday, and swim 3-4 times a week. She currently just run and play tennis only due to her knee pain. Prior Treatments and Tests Had PT from December-Mar for achilles tendonopathy but unsuccessful. Treatment Goals Patient/Caregiver Goals 1. to be able to bike and swim again without knee pain 2. able to exercises without L achilles pain. Prior Functional Status Baseline Function- ADL's Independent Baseline Function- Mobility Independent Current Functional Impairments (Reported) Functional Limitations- Recreation/ Currently unable to bike on a Hobbies regular bike/ stationary bike unable to swim with breast stroke Functional Limitations- Other R knee pain during STS from low surface. PT-OP-C Subjective Start: 05/07/19 07:54 Freq: Status: Active Protocol: Document 05/08/19 13:48 HH (Rec: 05/08/19 16:15 HH [email or web address]) OP-PT Subjective Patient Comments Patient Comments My knee got better with the tape. I did not have discomfort while biking for the past 2 days. PT-OP-F Manual Assessment Start: 05/07/19 07:54 Freq: Status: Active Protocol: Document 05/06/19 14:30 HH (Rec: 05/07/19 08:46 [email or web address]) Manual Assessments Soft Tissue Assessment Soft Tissue Mobility Assessment R lateral quad hypertrophy compared to L thigh R medial quad hypotrophy compared to L thigh Joint Mobility Assessment Joint Mobility Assessment excessive lateral glide of R patella during terminal knee extension PT-OP-G Mobility & Gait Start: 05/07/19 07:54 Freq: Status: Active Protocol: Document 05/06/19 14:30 HH (Rec: 05/07/19 08:46 [email or web address]) OP Gait Assessment Comments Gait Comments noticeable B knee valgus thrust, along with increased pronation on L ankle during loading response PT-OP-J Posture/Palpation/Skin Start: 05/07/19 07:54 Freq: Status: Active Protocol: Document 05/06/19 14:30 HH (Rec: 05/07/19 08:46 [email or web address]) Posture Evaluation Position Standing Evaluation View Posterior Weight Distribution Decreased Wt.Bear on (L) Hip Posture (R) Internally Rotated Ankle/Foot Posture (L) Pronated Foot Arch (R) Medium Arch,(L) Low Arch Palpation Assessment Location L achilles Palpation Location insertional achilles Palpation Findings Tenderness Palpation Details significant tenderness to pressure PT-OP-K Range of Motion Start: 05/07/19 07:54 Freq: Status: Active Protocol: Document 05/06/19 14:30 HH (Rec: 05/07/19 08:46 [email or web address]) Hip Goniometric Range of Motion Hip Right Active Hip ROM WFL Yes Internal Rotation 35 External Rotation 35 Left Active Hip ROM WFL Yes Internal Rotation 40 External Rotation 25 Knee Goniometric Range of Motion Knee Right Knee ROM WFL Yes Left Knee ROM WFL Yes Ankle and Foot Goniometric Range of Motion Ankle and Foot Right Active Ankle/Foot ROM WFL Yes Testing Position Supine Dorsiflexion with Knee Extended 15 Plantarflexion 55 Left Active Ankle/Foot ROM WFL Yes Testing Position Supine Dorsiflexion with Knee Extended 13 Plantarflexion 45 PT-OP-L Special Tests Start: 05/07/19 07:54 Freq: Status: Active Protocol: Document 05/06/19 14:30 HH (Rec: 05/07/19 08:46 HH [email or web address]) Special Tests Knee Special Tests Lateral Pivot Shift Test Results -ve Jose Test Test Results -VE Apley's Compression Test Results -VE Varus- 25 Degrees Test Results -VE Varus- 0 Degrees Test Results -VE Valgus- 25 Degrees Test Results -VE Valgus- 0 Degrees Test Results -VE PT-OP-M Strength Start: 05/07/19 07:54 Freq: Status: Active Protocol: Document 05/06/19 14:30 HH (Rec: 05/07/19 08:46 HH [email or web address]) Hip Strength Hip Manual Muscle Testing Right Flexion (L2) 5 Normal Extension (S1) 5 Normal Abduction 5 Normal Adduction 5 Normal Left Flexion (L2) 4 Good Extension (S1) 4 Good Abduction 4 Good Adduction 4+ Good+ Knee Strength Knee Manual Muscle Testing Right Flexion (S2) 4+ Good+ Extension (L3) 4+ Good+ Left Flexion (S2) 5 Normal Extension (L3) 5 Normal PT-OP-Q Treatments Start: 05/07/19 07:54 Freq: Status: Active Protocol: Document 05/08/19 13:48 HH (Rec: 05/08/19 16:15 HH [email or web address]) Therapeutic Exercises Supine Exercises self calf release Side left Equipment Used tennis ball Sidelying Exercises self quad release Sidelying Exercise Name R lateral quad release Side right Equipment Used foam roller Reps/Minutes 2 mins Standing Exercises side walk Equipment Used with yellow resisted band Reps/Minutes 10 x2 hip ER Standing Exercise Name hip ER Resistance with yellow resisted band Reps/Minutes 10 x 4 standing calf raise Standing Exercise Name tennis ball between ankles , with feet box turner Side bilateral Equipment Used tennis ball Comments focus on post tib preswing push off Side left Comments with MTP extension and dorsiflexion to push off. Manual Therapy Treatment Soft Tissue Mobilization L calf Mobilization Type Cross-Friction,Sustained Pressure,Trigger Point Release Intensity/Depth Moderate Body Position Prone L achilles tendon Mobilization Type Cross-Friction,Sustained Pressure,Trigger Point Release Intensity/Depth Moderate Body Position Prone PT-OP-T Assessment and Plan Start: 05/07/19 07:54 Freq: Status: Active Protocol: Document 05/08/19 13:48 HH (Rec: 05/08/19 16:15 [email or web address]) Physical Therapy Assessment Goals HEP Impairment Pt does not have a HEP Fdc Goal (LTG) Pt will comply to HEP safely and independently to improve her body awareness and body mechanics for injury prevention LTG Duration 8 weeks hip strength Impairment decreased L hip strength Fdc Goal (LTG) Pt will improve her L hip strength by 1 MMT grade to improve her L hip stability during gait/ running and sports related activities.. LTG Duration 8 weeks return to sports Impairment pt is unable to bike/ swim at this point Short Term Goal (STG) Pt will bike with regular bike / stationary bike and swim with breast stroke 2-3 times/ week with R knee pain no more than 2 STG Duration 4 weeks Upholstery Estimator Goal (LTG) Pt will bike with regular bike / stationary bike and swim with breast stroke 4-5 times/ week without R knee pain LTG Duration 8 weeks LEFS Impairment pt scores 76 for LEFS Fdc Goal (LTG) Pt will score 80 for LEFS to improve her quality of life LTG Duration 8 weeks Assessment Summary Assessment Pt's knee pain resolve with KT tape to improve medial tracking. Educated pt to self release on L calf, achilles and R lateral quad and post tib calf raise. Pt's SL calf raise R= 21, L=20. there's noticeable decreased ankle supination during squat. Physical Therapy Plan Next Visit Focus/Plan Next Note Type Treatment Note Next Visit Plan review launch, KT tape start with launch on L side, wedge on big toe squat with wedge on L heel, wedge on R medial heel calf raise on L VMO strength hip stab, ER strengthening
--- NOTE | 2019-05-18 15:16 | PT.OTN ---
Current Diagnoses Pain in right knee (05/18/19) Physical Therapy Treatment Note PT-OP-A Visit Information Start: 05/07/19 07:54 Freq: Status: Active Protocol: Document 05/18/19 14:30 DCW (Rec: 05/18/19 15:16 DCW [id number]) Out-Patient Physical Therapy Visit Information Visit Information Visit Type Treatment Note Visit Start Time 14:30 Visit Stop Time 15:15 Total Visit Minutes 45 Visit Number 3 Number of HATCH SUPERVISOR Visits 0 Evaluation Information Evaluation Date 05/06/19 PT-OP-B Current Condition Start: 05/07/19 07:54 Freq: Status: Active Protocol: Document 05/06/19 14:30 HH (Rec: 05/07/19 08:46 HH [email or web address]) Current Condition History of Current Condition Onset Date Summer 2017 Current Complaints R knee pain, L achilles pain, unable to return to cycling and swimming History of Current Condition Pt is a 48 yo female who presents to clinic with c/o R knee pain since last summer. Pt described her pain located at posterior- medial border of patella. Pain occurs only after repetitive cycling/ swimming with breast stroke. She noticed her pain primarily happen with knee flexion such as sit to stand from low chair, cycling and paddling during swimming. It goes away with inverted foot during cycling. Pt stated she had chronic L achilles pain/ tendonopathy since 3-4 years ago and had PT from this December- March, but she said it did not help. Pt is a very active individual who used to bike and run everyday, and swim 3-4 times a week. She currently just run and play tennis only due to her knee pain. Prior Treatments and Tests Had PT from December-Mar for achilles tendonopathy but unsuccessful. Treatment Goals Patient/Caregiver Goals 1. to be able to bike and swim again without knee pain 2. able to exercises without L achilles pain. Prior Functional Status Baseline Function- ADL's Independent Baseline Function- Mobility Independent Current Functional Impairments (Reported) Functional Limitations- Recreation/ Currently unable to bike on a Hobbies regular bike/ stationary bike unable to swim with breast stroke Functional Limitations- Other R knee pain during STS from low surface. PT-OP-C Subjective Start: 05/07/19 07:54 Freq: Status: Active Protocol: Document 05/18/19 14:30 DCW (Rec: 05/18/19 15:16 DCW [id number]) OP-PT Subjective Patient Comments Patient Comments Pt notes that she is actually pretty good today. PT-OP-F Manual Assessment Start: 05/07/19 07:54 Freq: Status: Active Protocol: Document 05/06/19 14:30 HH (Rec: 05/07/19 08:46 [email or web address]) Manual Assessments Soft Tissue Assessment Soft Tissue Mobility Assessment R lateral quad hypertrophy compared to L thigh R medial quad hypotrophy compared to L thigh Joint Mobility Assessment Joint Mobility Assessment excessive lateral glide of R patella during terminal knee extension PT-OP-G Mobility & Gait Start: 05/07/19 07:54 Freq: Status: Active Protocol: Document 05/06/19 14:30 HH (Rec: 05/07/19 08:46 [email or web address]) OP Gait Assessment Comments Gait Comments noticeable B knee valgus thrust, along with increased pronation on L ankle during loading response PT-OP-J Posture/Palpation/Skin Start: 05/07/19 07:54 Freq: Status: Active Protocol: Document 05/06/19 14:30 HH (Rec: 05/07/19 08:46 [email or web address]) Posture Evaluation Position Standing Evaluation View Posterior Weight Distribution Decreased Wt.Bear on (L) Hip Posture (R) Internally Rotated Ankle/Foot Posture (L) Pronated Foot Arch (R) Medium Arch,(L) Low Arch Palpation Assessment Location L achilles Palpation Location insertional achilles Palpation Findings Tenderness Palpation Details significant tenderness to pressure PT-OP-K Range of Motion Start: 05/07/19 07:54 Freq: Status: Active Protocol: Document 05/06/19 14:30 HH (Rec: 05/07/19 08:46 [email or web address]) Hip Goniometric Range of Motion Hip Right Active Hip ROM WFL Yes Internal Rotation 35 External Rotation 35 Left Active Hip ROM WFL Yes Internal Rotation 40 External Rotation 25 Knee Goniometric Range of Motion Knee Right Knee ROM WFL Yes Left Knee ROM WFL Yes Ankle and Foot Goniometric Range of Motion Ankle and Foot Right Active Ankle/Foot ROM WFL Yes Testing Position Supine Dorsiflexion with Knee Extended 15 Plantarflexion 55 Left Active Ankle/Foot ROM WFL Yes Testing Position Supine Dorsiflexion with Knee Extended 13 Plantarflexion 45 PT-OP-L Special Tests Start: 05/07/19 07:54 Freq: Status: Active Protocol: Document 05/06/19 14:30 HH (Rec: 05/07/19 08:46 HH [email or web address]) Special Tests Knee Special Tests Lateral Pivot Shift Test Results -ve Jose Test Test Results -VE Apley's Compression Test Results -VE Varus- 25 Degrees Test Results -VE Varus- 0 Degrees Test Results -VE Valgus- 25 Degrees Test Results -VE Valgus- 0 Degrees Test Results -VE PT-OP-M Strength Start: 05/07/19 07:54 Freq: Status: Active Protocol: Document 05/06/19 14:30 HH (Rec: 05/07/19 08:46 HH [email or web address]) Hip Strength Hip Manual Muscle Testing Right Flexion (L2) 5 Normal Extension (S1) 5 Normal Abduction 5 Normal Adduction 5 Normal Left Flexion (L2) 4 Good Extension (S1) 4 Good Abduction 4 Good Adduction 4+ Good+ Knee Strength Knee Manual Muscle Testing Right Flexion (S2) 4+ Good+ Extension (L3) 4+ Good+ Left Flexion (S2) 5 Normal Extension (L3) 5 Normal PT-OP-Q Treatments Start: 05/07/19 07:54 Freq: Status: Active Protocol: Document 05/18/19 14:30 DCW (Rec: 05/18/19 15:16 DCW [id number]) Therapeutic Exercises Supine Exercises ITB Stretch Supine Exercise Name ITB stretch /c strap Standing Exercises side walk Equipment Used with yellow resisted band Reps/Minutes 10 x2 hip ER Standing Exercise Name hip ER Resistance with green resisted band Equipment Used knee on stool Reps/Minutes 10 x 4 Manual Therapy Treatment Soft Tissue Mobilization R Piriformis Mobilization Type Myofascial Release,Sustained Pressure,Trigger Point Release R ITB Mobilization Type Myofascial Release,Strumming, Trigger Point Release L calf Mobilization Type Cross-Friction,Sustained Pressure,Trigger Point Release Intensity/Depth Moderate Body Position Prone L achilles tendon Mobilization Type Cross-Friction,Sustained Pressure,Trigger Point Release Intensity/Depth Moderate Body Position Prone PT-OP-T Assessment and Plan Start: 05/07/19 07:54 Freq: Status: Active Protocol: Document 05/18/19 14:30 DCW (Rec: 05/18/19 15:16 DCW [id number]) Physical Therapy Assessment Impairments Impairments Activity Tolerance,Balance, Functional Activities, Functional Mobility,Gait,Pain, Posture,ROM,Soft Tissue Mobility,Strength Goals HEP Impairment Pt does not have a HEP Computer Art Instructor Goal (LTG) Pt will comply to HEP safely and independently to improve her body awareness and body mechanics for injury prevention LTG Duration 8 weeks hip strength Impairment decreased L hip strength Mcc Goal (LTG) Pt will improve her L hip strength by 1 MMT grade to improve her L hip stability during gait/ running and sports related activities.. LTG Duration 8 weeks return to sports Impairment pt is unable to bike/ swim at this point Short Term Goal (STG) Pt will bike with regular bike / stationary bike and swim with breast stroke 2-3 times/ week with R knee pain no more than 2 STG Duration 4 weeks Computer Art Instructor Goal (LTG) Pt will bike with regular bike / stationary bike and swim with breast stroke 4-5 times/ week without R knee pain LTG Duration 8 weeks LEFS Impairment pt scores 76 for LEFS Computer Art Instructor Goal (LTG) Pt will score 80 for LEFS to improve her quality of life LTG Duration 8 weeks Assessment Summary Assessment Pt experiencing less knee pain with running and biking, even without K-tape. Tolerated STM well today, although did note some tightness/tenderness along ITB. Physical Therapy Plan Frequency and Duration Frequency of Treatment 2x/Week Duration of Treatment 8 weeks Plan of Care Start Date 05/07/19 Plan of Care End Date 07/06/19 Therapeutic Interventions Therapeutic Interventions Balance Training,Gait Training ,Home Exercise Program,Joint Mobilizations,Manual Therapy, Neuromuscular Re-education, Patient/Caregiver Education, Self-Care/Home Management,Soft Tissue Mobilization,Taping, Therapeutic Activities, Therapeutic Exercises Modalities Cold Pack/Ice Massage,Electric Stimulation,Hot Packs, Infrared Therapy,Traction- Mechanical,Ultrasound Next Visit Focus/Plan Next Note Type Treatment Note Next Visit Plan review launch, KT tape start with launch on L side, wedge on big toe squat with wedge on L heel, wedge on R medial heel calf raise on L VMO strength hip stab, ER strengthening
--- NOTE | 2019-05-20 15:29 | PT.OTN ---
Current Diagnoses Pain in right knee (05/20/19) Physical Therapy Treatment Note PT-OP-A Visit Information Start: 05/07/19 07:54 Freq: Status: Active Protocol: Document 05/20/19 14:32 HH (Rec: 05/20/19 15:29 HH [email or web address]) Out-Patient Physical Therapy Visit Information Visit Information Visit Type Treatment Note Visit Start Time 14:32 Visit Stop Time 15:15 Total Visit Minutes 43 Visit Number 4 Number of TOXICOLOGIST Visits 0 PT-OP-B Current Condition Start: 05/07/19 07:54 Freq: Status: Active Protocol: Document 05/06/19 14:30 HH (Rec: 05/07/19 08:46 HH [email or web address]) Current Condition History of Current Condition Onset Date Summer 2017 Current Complaints R knee pain, L achilles pain, unable to return to cycling and swimming History of Current Condition Pt is a 48 yo female who presents to clinic with c/o R knee pain since last summer. Pt described her pain located at posterior- medial border of patella. Pain occurs only after repetitive cycling/ swimming with breast stroke. She noticed her pain primarily happen with knee flexion such as sit to stand from low chair, cycling and paddling during swimming. It goes away with inverted foot during cycling. Pt stated she had chronic L achilles pain/ tendonopathy since 3-4 years ago and had PT from this December- March, but she said it did not help. Pt is a very active individual who used to bike and run everyday, and swim 3-4 times a week. She currently just run and play tennis only due to her knee pain. Prior Treatments and Tests Had PT from December-Mar for achilles tendonopathy but unsuccessful. Treatment Goals Patient/Caregiver Goals 1. to be able to bike and swim again without knee pain 2. able to exercises without L achilles pain. Prior Functional Status Baseline Function- ADL's Independent Baseline Function- Mobility Independent Current Functional Impairments (Reported) Functional Limitations- Recreation/ Currently unable to bike on a Hobbies regular bike/ stationary bike unable to swim with breast stroke Functional Limitations- Other R knee pain during STS from low surface. PT-OP-C Subjective Start: 05/07/19 07:54 Freq: Status: Active Protocol: Document 05/20/19 14:32 HH (Rec: 05/20/19 15:29 HH [email or web address]) OP-PT Subjective Patient Comments Patient Comments Pt stated she has no pain since she started therapy and cont her biking activities. However, she had significant knee pain (posterior-medial) after biking uphill with her daughter yesterday. Pain decreased today. Patient Reported Progress Improving PT-OP-F Manual Assessment Start: 05/07/19 07:54 Freq: Status: Active Protocol: Document 05/06/19 14:30 HH (Rec: 05/07/19 08:46 HH [email or web address]) Manual Assessments Soft Tissue Assessment Soft Tissue Mobility Assessment R lateral quad hypertrophy compared to L thigh R medial quad hypotrophy compared to L thigh Joint Mobility Assessment Joint Mobility Assessment excessive lateral glide of R patella during terminal knee extension PT-OP-G Mobility & Gait Start: 05/07/19 07:54 Freq: Status: Active Protocol: Document 05/06/19 14:30 HH (Rec: 05/07/19 08:46 HH [email or web address]) OP Gait Assessment Comments Gait Comments noticeable B knee valgus thrust, along with increased pronation on L ankle during loading response PT-OP-J Posture/Palpation/Skin Start: 05/07/19 07:54 Freq: Status: Active Protocol: Document 05/06/19 14:30 HH (Rec: 05/07/19 08:46 HH [email or web address]) Posture Evaluation Position Standing Evaluation View Posterior Weight Distribution Decreased Wt.Bear on (L) Hip Posture (R) Internally Rotated Ankle/Foot Posture (L) Pronated Foot Arch (R) Medium Arch,(L) Low Arch Palpation Assessment Location L achilles Palpation Location insertional achilles Palpation Findings Tenderness Palpation Details significant tenderness to pressure PT-OP-K Range of Motion Start: 05/07/19 07:54 Freq: Status: Active Protocol: Document 05/06/19 14:30 HH (Rec: 05/07/19 08:46 HH [email or web address]) Hip Goniometric Range of Motion Hip Right Active Hip ROM WFL Yes Internal Rotation 35 External Rotation 35 Left Active Hip ROM WFL Yes Internal Rotation 40 External Rotation 25 Knee Goniometric Range of Motion Knee Right Knee ROM WFL Yes Left Knee ROM WFL Yes Ankle and Foot Goniometric Range of Motion Ankle and Foot Right Active Ankle/Foot ROM WFL Yes Testing Position Supine Dorsiflexion with Knee Extended 15 Plantarflexion 55 Left Active Ankle/Foot ROM WFL Yes Testing Position Supine Dorsiflexion with Knee Extended 13 Plantarflexion 45 PT-OP-L Special Tests Start: 05/07/19 07:54 Freq: Status: Active Protocol: Document 05/06/19 14:30 HH (Rec: 05/07/19 08:46 HH [email or web address]) Special Tests Knee Special Tests Lateral Pivot Shift Test Results -ve Jose Test Test Results -VE Apley's Compression Test Results -VE Varus- 25 Degrees Test Results -VE Varus- 0 Degrees Test Results -VE Valgus- 25 Degrees Test Results -VE Valgus- 0 Degrees Test Results -VE PT-OP-M Strength Start: 05/07/19 07:54 Freq: Status: Active Protocol: Document 05/06/19 14:30 HH (Rec: 05/07/19 08:46 [email or web address]) Hip Strength Hip Manual Muscle Testing Right Flexion (L2) 5 Normal Extension (S1) 5 Normal Abduction 5 Normal Adduction 5 Normal Left Flexion (L2) 4 Good Extension (S1) 4 Good Abduction 4 Good Adduction 4+ Good+ Knee Strength Knee Manual Muscle Testing Right Flexion (S2) 4+ Good+ Extension (L3) 4+ Good+ Left Flexion (S2) 5 Normal Extension (L3) 5 Normal PT-OP-Q Treatments Start: 05/07/19 07:54 Freq: Status: Active Protocol: Document 05/20/19 14:32 HH (Rec: 05/20/19 15:29 HH [email or web address]) Cardio Equipment Bicycle (Upright) Duration (Minutes) 5 Resistance 5 Other noticead external rotated tibia and foot pronation Therapeutic Exercises Standing Exercises RDL Standing Exercise Name single leg stance Side bilateral Equipment Used toe touch Comments cues on hip knee ankle alignment with mirror geno disk Standing Exercise Name single leg stance Side bilateral Equipment Used slider Comments cues on hip knee ankle alignment with mirror slider Standing Exercise Name foward, lateral and backward slide Side bilateral Equipment Used slider Comments cues on hip knee ankle alignment with mirror Manual Therapy Treatment Soft Tissue Mobilization R ITB Mobilization Type Myofascial Release,Strumming, Trigger Point Release Intensity/Depth Moderate Body Position Supine L calf Mobilization Type Cross-Friction,Sustained Pressure,Trigger Point Release Intensity/Depth Moderate Body Position Prone L achilles tendon Mobilization Type Cross-Friction,Sustained Pressure,Trigger Point Release Intensity/Depth Moderate Body Position Prone Taping lateral support Body Location Lateral support for patella Treatment Focus patella stability Type of Tape Kinesio Tape Comments one I-strip PT-OP-T Assessment and Plan Start: 05/07/19 07:54 Freq: Status: Active Protocol: Document 05/20/19 14:32 HH (Rec: 05/20/19 15:29 HH [email or web address]) Physical Therapy Assessment Goals HEP Impairment Pt does not have a HEP Snf Goal (LTG) Pt will comply to HEP safely and independently to improve her body awareness and body mechanics for injury prevention LTG Duration 8 weeks hip strength Impairment decreased L hip strength Snf Goal (LTG) Pt will improve her L hip strength by 1 MMT grade to improve her L hip stability during gait/ running and sports related activities.. LTG Duration 8 weeks return to sports Impairment pt is unable to bike/ swim at this point Short Term Goal (STG) Pt will bike with regular bike / stationary bike and swim with breast stroke 2-3 times/ week with R knee pain no more than 2 STG Duration 4 weeks Snf Goal (LTG) Pt will bike with regular bike / stationary bike and swim with breast stroke 4-5 times/ week without R knee pain LTG Duration 8 weeks LEFS Impairment pt scores 76 for LEFS Household Coordinator Goal (LTG) Pt will score 80 for LEFS to improve her quality of life LTG Duration 8 weeks Assessment Summary Assessment Pt did improve significantly since IE but c/o pain after biking uphill yesterday. Noticead pt has tendency to have knee valgus bilaterally during SLS, squating, biking which possibly increased mechanical pressure at posterior-medial patellofemoral joint. Emphasis on hip- knee- foot alignment today during single leg activities. Physical Therapy Plan Next Visit Focus/Plan Next Note Type Treatment Note Next Visit Plan review HEP, hip knee ankle mechanics during ex ankle dynamic ex single leg dynamic ex. calf raise on L VMO strength hip stab, ER strengthening
--- NOTE | 2019-05-26 15:35 | PT.OTN ---
Current Diagnoses Pain in right knee (05/26/19) Physical Therapy Treatment Note PT-OP-A Visit Information Start: 05/07/19 07:54 Freq: Status: Active Protocol: Document 05/26/19 14:33 HH (Rec: 05/26/19 15:34 [id number]) Out-Patient Physical Therapy Visit Information Visit Information Visit Type Treatment Note Visit Start Time 14:33 Visit Stop Time 15:15 Total Visit Minutes 42 Visit Number 5 Number of APPRENTICE LINEMAN THIRD STEP Visits 0 PT-OP-B Current Condition Start: 05/07/19 07:54 Freq: Status: Active Protocol: Document 05/06/19 14:30 HH (Rec: 05/07/19 08:46 HH [email or web address]) Current Condition History of Current Condition Onset Date Summer 2017 Current Complaints R knee pain, L achilles pain, unable to return to cycling and swimming History of Current Condition Pt is a 48 yo female who presents to clinic with c/o R knee pain since last summer. Pt described her pain located at posterior- medial border of patella. Pain occurs only after repetitive cycling/ swimming with breast stroke. She noticed her pain primarily happen with knee flexion such as sit to stand from low chair, cycling and paddling during swimming. It goes away with inverted foot during cycling. Pt stated she had chronic L achilles pain/ tendonopathy since 3-4 years ago and had PT from this December- March, but she said it did not help. Pt is a very active individual who used to bike and run everyday, and swim 3-4 times a week. She currently just run and play tennis only due to her knee pain. Prior Treatments and Tests Had PT from December-Mar for achilles tendonopathy but unsuccessful. Treatment Goals Patient/Caregiver Goals 1. to be able to bike and swim again without knee pain 2. able to exercises without L achilles pain. Prior Functional Status Baseline Function- ADL's Independent Baseline Function- Mobility Independent Current Functional Impairments (Reported) Functional Limitations- Recreation/ Currently unable to bike on a Hobbies regular bike/ stationary bike unable to swim with breast stroke Functional Limitations- Other R knee pain during STS from low surface. PT-OP-C Subjective Start: 05/07/19 07:54 Freq: Status: Active Protocol: Document 05/26/19 14:33 HH (Rec: 05/26/19 15:34 [id number]) OP-PT Subjective Patient Comments Patient Comments I was really sore a few days ago, I think because I was rolling out my quad as well as the side of my thigh. I stopped that the other day and it feels better now. PT-OP-F Manual Assessment Start: 05/07/19 07:54 Freq: Status: Active Protocol: Document 05/06/19 14:30 HH (Rec: 05/07/19 08:46 HH [email or web address]) Manual Assessments Soft Tissue Assessment Soft Tissue Mobility Assessment R lateral quad hypertrophy compared to L thigh R medial quad hypotrophy compared to L thigh Joint Mobility Assessment Joint Mobility Assessment excessive lateral glide of R patella during terminal knee extension PT-OP-G Mobility & Gait Start: 05/07/19 07:54 Freq: Status: Active Protocol: Document 05/06/19 14:30 HH (Rec: 05/07/19 08:46 HH [email or web address]) OP Gait Assessment Comments Gait Comments noticeable B knee valgus thrust, along with increased pronation on L ankle during loading response PT-OP-J Posture/Palpation/Skin Start: 05/07/19 07:54 Freq: Status: Active Protocol: Document 05/06/19 14:30 HH (Rec: 05/07/19 08:46 HH [email or web address]) Posture Evaluation Position Standing Evaluation View Posterior Weight Distribution Decreased Wt.Bear on (L) Hip Posture (R) Internally Rotated Ankle/Foot Posture (L) Pronated Foot Arch (R) Medium Arch,(L) Low Arch Palpation Assessment Location L achilles Palpation Location insertional achilles Palpation Findings Tenderness Palpation Details significant tenderness to pressure PT-OP-K Range of Motion Start: 05/07/19 07:54 Freq: Status: Active Protocol: Document 05/06/19 14:30 HH (Rec: 05/07/19 08:46 HH [email or web address]) Hip Goniometric Range of Motion Hip Right Active Hip ROM WFL Yes Internal Rotation 35 External Rotation 35 Left Active Hip ROM WFL Yes Internal Rotation 40 External Rotation 25 Knee Goniometric Range of Motion Knee Right Knee ROM WFL Yes Left Knee ROM WFL Yes Ankle and Foot Goniometric Range of Motion Ankle and Foot Right Active Ankle/Foot ROM WFL Yes Testing Position Supine Dorsiflexion with Knee Extended 15 Plantarflexion 55 Left Active Ankle/Foot ROM WFL Yes Testing Position Supine Dorsiflexion with Knee Extended 13 Plantarflexion 45 PT-OP-L Special Tests Start: 05/07/19 07:54 Freq: Status: Active Protocol: Document 05/06/19 14:30 HH (Rec: 05/07/19 08:46 HH [email or web address]) Special Tests Knee Special Tests Lateral Pivot Shift Test Results -ve Jose Test Test Results -VE Apley's Compression Test Results -VE Varus- 25 Degrees Test Results -VE Varus- 0 Degrees Test Results -VE Valgus- 25 Degrees Test Results -VE Valgus- 0 Degrees Test Results -VE PT-OP-M Strength Start: 05/07/19 07:54 Freq: Status: Active Protocol: Document 05/06/19 14:30 HH (Rec: 05/07/19 08:46 [email or web address]) Hip Strength Hip Manual Muscle Testing Right Flexion (L2) 5 Normal Extension (S1) 5 Normal Abduction 5 Normal Adduction 5 Normal Left Flexion (L2) 4 Good Extension (S1) 4 Good Abduction 4 Good Adduction 4+ Good+ Knee Strength Knee Manual Muscle Testing Right Flexion (S2) 4+ Good+ Extension (L3) 4+ Good+ Left Flexion (S2) 5 Normal Extension (L3) 5 Normal PT-OP-Q Treatments Start: 05/07/19 07:54 Freq: Status: Active Protocol: Document 05/26/19 14:33 HH (Rec: 05/26/19 15:34 HH [id number]) Cardio Equipment Bicycle (Upright) Duration (Minutes) 5 Resistance 5 Other noticead external rotated tibia and foot pronation Therapeutic Exercises Standing Exercises step up/down Side bilateral Reps/Minutes 2x10 Comments Cuing for eccentric control squat with wedge Side bilateral Equipment Used wedge Reps/Minutes 8 x 3 Comments wedge on L rearfoot (medial wedge) quad stretch Side right Reps/Minutes 30wsec x 4 single leg squat Side bilateral Comments Cuing to prevent knee over toes slider Standing Exercise Name foward, lateral and backward slide Side bilateral Equipment Used slider Comments cues on hip knee ankle alignment with mirror Manual Therapy Treatment Taping lateral support Body Location Lateral support for patella Treatment Focus patella stability Type of Tape Kinesio Tape Comments one I-strip Neuro Re-Education Treatment Balance Activities ankle stability Surface blue foam without UE support Equipment blue foam Comments with calf raise PT-OP-T Assessment and Plan Start: 05/07/19 07:54 Freq: Status: Active Protocol: Document 05/26/19 14:33 (Rec: 05/26/19 15:34 [id number]) Physical Therapy Assessment Goals HEP Impairment Pt does not have a HEP Construction Estimator Goal (LTG) Pt will comply to HEP safely and independently to improve her body awareness and body mechanics for injury prevention LTG Duration 8 weeks hip strength Impairment decreased L hip strength Construction Estimator Goal (LTG) Pt will improve her L hip strength by 1 MMT grade to improve her L hip stability during gait/ running and sports related activities.. LTG Duration 8 weeks return to sports Impairment pt is unable to bike/ swim at this point Short Term Goal (STG) Pt will bike with regular bike / stationary bike and swim with breast stroke 2-3 times/ week with R knee pain no more than 2 STG Duration 4 weeks Alf Goal (LTG) Pt will bike with regular bike / stationary bike and swim with breast stroke 4-5 times/ week without R knee pain LTG Duration 8 weeks LEFS Impairment pt scores 76 for LEFS Alf Goal (LTG) Pt will score 80 for LEFS to improve her quality of life LTG Duration 8 weeks Assessment Summary Assessment Pt reports cont knee pain that has slightly improved since stopping rolling out quad. Pt demonstrates cont knee valgus and limited L ankle mobility and stability likely contributing to patient'c cont complaints of pain in L knee. She also c/o increased R patella pressure/ discomfort with increased knee flexion for single leg squat/balance. Cont emphasis on hip, knee, and ankle alignment as well as ankle stability. Pt also demonstrates L knee hyperextension and hip IR in stance. HEP updated to address hip strength with balance ( slider ex). Physical Therapy Plan Frequency and Duration Frequency of Treatment 2x/Week Duration of Treatment 8 weeks Plan of Care Start Date 05/07/19 Plan of Care End Date 07/06/19 Therapeutic Interventions Therapeutic Interventions Balance Training,Gait Training ,Home Exercise Program,Joint Mobilizations,Manual Therapy, Neuromuscular Re-education, Patient/Caregiver Education, Self-Care/Home Management,Soft Tissue Mobilization,Taping, Therapeutic Activities, Therapeutic Exercises Modalities Cold Pack/Ice Massage,Electric Stimulation,Hot Packs, Infrared Therapy,Traction- Mechanical,Ultrasound Next Visit Focus/Plan Next Note Type Treatment Note Next Visit Plan check hip position, hip IR/ER, sacral torsion ankle joint possibly review HEP, hip knee ankle mechanics during ex ankle dynamic ex single leg dynamic ex. calf raise on L VMO strength hip stab, ER strengthening
--- NOTE | 2019-05-28 15:34 | PT.OTN ---
Current Diagnoses Pain in right knee (05/28/19) Physical Therapy Treatment Note PT-OP-A Visit Information Start: 05/07/19 07:54 Freq: Status: Active Protocol: Document 05/28/19 14:34 HH (Rec: 05/28/19 15:34 HH [id number]) Out-Patient Physical Therapy Visit Information Visit Information Visit Type Treatment Note Visit Start Time 14:34 Visit Stop Time 15:16 Total Visit Minutes 42 Visit Number 6 Number of APPLICATION PACKAGING SPECIALIST Visits 0 PT-OP-B Current Condition Start: 05/07/19 07:54 Freq: Status: Active Protocol: Document 05/06/19 14:30 HH (Rec: 05/07/19 08:46 HH [email or web address]) Current Condition History of Current Condition Onset Date Summer 2017 Current Complaints R knee pain, L achilles pain, unable to return to cycling and swimming History of Current Condition Pt is a 48 yo female who presents to clinic with c/o R knee pain since last summer. Pt described her pain located at posterior- medial border of patella. Pain occurs only after repetitive cycling/ swimming with breast stroke. She noticed her pain primarily happen with knee flexion such as sit to stand from low chair, cycling and paddling during swimming. It goes away with inverted foot during cycling. Pt stated she had chronic L achilles pain/ tendonopathy since 3-4 years ago and had PT from this December- March, but she said it did not help. Pt is a very active individual who used to bike and run everyday, and swim 3-4 times a week. She currently just run and play tennis only due to her knee pain. Prior Treatments and Tests Had PT from December-Mar for achilles tendonopathy but unsuccessful. Treatment Goals Patient/Caregiver Goals 1. to be able to bike and swim again without knee pain 2. able to exercises without L achilles pain. Prior Functional Status Baseline Function- ADL's Independent Baseline Function- Mobility Independent Current Functional Impairments (Reported) Functional Limitations- Recreation/ Currently unable to bike on a Hobbies regular bike/ stationary bike unable to swim with breast stroke Functional Limitations- Other R knee pain during STS from low surface. PT-OP-C Subjective Start: 05/07/19 07:54 Freq: Status: Active Protocol: Document 05/28/19 14:34 HH (Rec: 05/28/19 15:34 HH [id number]) OP-PT Subjective Patient Comments Patient Comments My knee has felt better since last time. I ran today and had no pain but have not been biking as much. Patient Reported Progress Improving PT-OP-F Manual Assessment Start: 05/07/19 07:54 Freq: Status: Active Protocol: Document 05/06/19 14:30 HH (Rec: 05/07/19 08:46 HH [email or web address]) Manual Assessments Soft Tissue Assessment Soft Tissue Mobility Assessment R lateral quad hypertrophy compared to L thigh R medial quad hypotrophy compared to L thigh Joint Mobility Assessment Joint Mobility Assessment excessive lateral glide of R patella during terminal knee extension PT-OP-G Mobility & Gait Start: 05/07/19 07:54 Freq: Status: Active Protocol: Document 05/06/19 14:30 HH (Rec: 05/07/19 08:46 HH [email or web address]) OP Gait Assessment Comments Gait Comments noticeable B knee valgus thrust, along with increased pronation on L ankle during loading response PT-OP-J Posture/Palpation/Skin Start: 05/07/19 07:54 Freq: Status: Active Protocol: Document 05/06/19 14:30 HH (Rec: 05/07/19 08:46 HH [email or web address]) Posture Evaluation Position Standing Evaluation View Posterior Weight Distribution Decreased Wt.Bear on (L) Hip Posture (R) Internally Rotated Ankle/Foot Posture (L) Pronated Foot Arch (R) Medium Arch,(L) Low Arch Palpation Assessment Location L achilles Palpation Location insertional achilles Palpation Findings Tenderness Palpation Details significant tenderness to pressure PT-OP-K Range of Motion Start: 05/07/19 07:54 Freq: Status: Active Protocol: Document 05/06/19 14:30 HH (Rec: 05/07/19 08:46 HH [email or web address]) Hip Goniometric Range of Motion Hip Right Active Hip ROM WFL Yes Internal Rotation 35 External Rotation 35 Left Active Hip ROM WFL Yes Internal Rotation 40 External Rotation 25 Knee Goniometric Range of Motion Knee Right Knee ROM WFL Yes Left Knee ROM WFL Yes Ankle and Foot Goniometric Range of Motion Ankle and Foot Right Active Ankle/Foot ROM WFL Yes Testing Position Supine Dorsiflexion with Knee Extended 15 Plantarflexion 55 Left Active Ankle/Foot ROM WFL Yes Testing Position Supine Dorsiflexion with Knee Extended 13 Plantarflexion 45 PT-OP-L Special Tests Start: 05/07/19 07:54 Freq: Status: Active Protocol: Document 05/06/19 14:30 HH (Rec: 05/07/19 08:46 [email or web address]) Special Tests Knee Special Tests Lateral Pivot Shift Test Results -ve Jose Test Test Results -VE Apley's Compression Test Results -VE Varus- 25 Degrees Test Results -VE Varus- 0 Degrees Test Results -VE Valgus- 25 Degrees Test Results -VE Valgus- 0 Degrees Test Results -VE PT-OP-M Strength Start: 05/07/19 07:54 Freq: Status: Active Protocol: Document 05/06/19 14:30 HH (Rec: 05/07/19 08:46 [email or web address]) Hip Strength Hip Manual Muscle Testing Right Flexion (L2) 5 Normal Extension (S1) 5 Normal Abduction 5 Normal Adduction 5 Normal Left Flexion (L2) 4 Good Extension (S1) 4 Good Abduction 4 Good Adduction 4+ Good+ Knee Strength Knee Manual Muscle Testing Right Flexion (S2) 4+ Good+ Extension (L3) 4+ Good+ Left Flexion (S2) 5 Normal Extension (L3) 5 Normal PT-OP-Q Treatments Start: 05/07/19 07:54 Freq: Status: Active Protocol: Document 05/28/19 14:34 HH (Rec: 05/28/19 15:34 [id number]) Gym Equipment Cable Column (Body Solid) knee extension Resistance 20 lbs Reps/Time 5 x 4 Therapeutic Exercises Standing Exercises ankle DF Standing Exercise Name lunge ankle DF Side left Reps/Minutes 30 secs x 8 step up/down Side bilateral Equipment Used 6 inch step Reps/Minutes 8 x4 Comments use hip hinge Manual Therapy Treatment Soft Tissue Mobilization L calf Body Location L gastroc, soleus, post tib Mobilization Type Cross-Friction,Sustained Pressure,Trigger Point Release Intensity/Depth Moderate Body Position Prone L achilles tendon Mobilization Type Cross-Friction,Sustained Pressure,Trigger Point Release Intensity/Depth Moderate Body Position Prone Joint Mobilizations post glide of tibia Joint tibial post glide Grade III Body Position Supine ant glide Joint talus ant glide Grade III Body Position Supine Comments with PA mob of tibia Manual Techniques Ankle dorsiflexion Type calf stretch Body Location L ankle Body Position Supine Reps/Duration 4 mins PT-OP-T Assessment and Plan Start: 05/07/19 07:54 Freq: Status: Active Protocol: Document 05/28/19 14:34 (Rec: 05/28/19 15:34 [id number]) Physical Therapy Assessment Goals HEP Impairment Pt does not have a HEP Residential Goal (LTG) Pt will comply to HEP safely and independently to improve her body awareness and body mechanics for injury prevention LTG Duration 8 weeks hip strength Impairment decreased L hip strength Residential Goal (LTG) Pt will improve her L hip strength by 1 MMT grade to improve her L hip stability during gait/ running and sports related activities.. LTG Duration 8 weeks return to sports Impairment pt is unable to bike/ swim at this point Short Term Goal (STG) Pt will bike with regular bike / stationary bike and swim with breast stroke 2-3 times/ week with R knee pain no more than 2 STG Duration 4 weeks Residential Goal (LTG) Pt will bike with regular bike / stationary bike and swim with breast stroke 4-5 times/ week without R knee pain LTG Duration 8 weeks LEFS Impairment pt scores 76 for LEFS Ordering Box Operator Goal (LTG) Pt will score 80 for LEFS to improve her quality of life LTG Duration 8 weeks Assessment Summary Assessment Pt has improved knee pain the past 2 days. Knee to wall test L ankle is 3inches less than R ankle. Pt also has knee pain symptoms primarily in open chain ex with knee flexion. Edcauted pt to use hip hinge pattern for stair climbing and step down and she did not c/o R knee discomfort. Physical Therapy Plan Next Visit Focus/Plan Next Note Type Treatment Note Next Visit Plan review HEP, OKA? so taping hip hinge pattern step down , hip knee ankle mechanics during ex ankle dynamic ex single leg dynamic ex. calf raise on L VMO strength hip stab, ER strengthening
--- NOTE | 2019-06-01 15:20 | PT.OTN ---
Current Diagnoses Pain in right knee (06/01/19) Physical Therapy Treatment Note PT-OP-A Visit Information Start: 05/07/19 07:54 Freq: Status: Active Protocol: Document 06/01/19 14:30 DCW (Rec: 06/01/19 15:19 DCW [id number]) Out-Patient Physical Therapy Visit Information Visit Information Visit Type Treatment Note Visit Start Time 14:30 Visit Stop Time 15:15 Total Visit Minutes 45 Visit Number 7 Number of AGRICULTURAL EQUIPMENT SALESPERSON Visits 0 PT-OP-B Current Condition Start: 05/07/19 07:54 Freq: Status: Active Protocol: Document 05/06/19 14:30 HH (Rec: 05/07/19 08:46 HH [email or web address]) Current Condition History of Current Condition Onset Date Summer 2017 Current Complaints R knee pain, L achilles pain, unable to return to cycling and swimming History of Current Condition Pt is a 48 yo female who presents to clinic with c/o R knee pain since last summer. Pt described her pain located at posterior- medial border of patella. Pain occurs only after repetitive cycling/ swimming with breast stroke. She noticed her pain primarily happen with knee flexion such as sit to stand from low chair, cycling and paddling during swimming. It goes away with inverted foot during cycling. Pt stated she had chronic L achilles pain/ tendonopathy since 3-4 years ago and had PT from this December- March, but she said it did not help. Pt is a very active individual who used to bike and run everyday, and swim 3-4 times a week. She currently just run and play tennis only due to her knee pain. Prior Treatments and Tests Had PT from December-Mar for achilles tendonopathy but unsuccessful. Treatment Goals Patient/Caregiver Goals 1. to be able to bike and swim again without knee pain 2. able to exercises without L achilles pain. Prior Functional Status Baseline Function- ADL's Independent Baseline Function- Mobility Independent Current Functional Impairments (Reported) Functional Limitations- Recreation/ Currently unable to bike on a Hobbies regular bike/ stationary bike unable to swim with breast stroke Functional Limitations- Other R knee pain during STS from low surface. PT-OP-C Subjective Start: 05/07/19 07:54 Freq: Status: Active Protocol: Document 06/01/19 14:30 DCW (Rec: 06/01/19 15:19 DCW [id number]) OP-PT Subjective Patient Comments Patient Comments Pt reports she tried biking last week, and it bothered her knee quite a bit, but then she tried again yesterday, and although she only went six blocks, the entire trip home was uphill, which typically bothers her, but she reports she did not have any issues. PT-OP-F Manual Assessment Start: 05/07/19 07:54 Freq: Status: Active Protocol: Document 05/06/19 14:30 HH (Rec: 05/07/19 08:46 HH [email or web address]) Manual Assessments Soft Tissue Assessment Soft Tissue Mobility Assessment R lateral quad hypertrophy compared to L thigh R medial quad hypotrophy compared to L thigh Joint Mobility Assessment Joint Mobility Assessment excessive lateral glide of R patella during terminal knee extension PT-OP-G Mobility & Gait Start: 05/07/19 07:54 Freq: Status: Active Protocol: Document 05/06/19 14:30 HH (Rec: 05/07/19 08:46 [email or web address]) OP Gait Assessment Comments Gait Comments noticeable B knee valgus thrust, along with increased pronation on L ankle during loading response PT-OP-J Posture/Palpation/Skin Start: 05/07/19 07:54 Freq: Status: Active Protocol: Document 05/06/19 14:30 HH (Rec: 05/07/19 08:46 HH [email or web address]) Posture Evaluation Position Standing Evaluation View Posterior Weight Distribution Decreased Wt.Bear on (L) Hip Posture (R) Internally Rotated Ankle/Foot Posture (L) Pronated Foot Arch (R) Medium Arch,(L) Low Arch Palpation Assessment Location L achilles Palpation Location insertional achilles Palpation Findings Tenderness Palpation Details significant tenderness to pressure PT-OP-K Range of Motion Start: 05/07/19 07:54 Freq: Status: Active Protocol: Document 05/06/19 14:30 HH (Rec: 05/07/19 08:46 [email or web address]) Hip Goniometric Range of Motion Hip Right Active Hip ROM WFL Yes Internal Rotation 35 External Rotation 35 Left Active Hip ROM WFL Yes Internal Rotation 40 External Rotation 25 Knee Goniometric Range of Motion Knee Right Knee ROM WFL Yes Left Knee ROM WFL Yes Ankle and Foot Goniometric Range of Motion Ankle and Foot Right Active Ankle/Foot ROM WFL Yes Testing Position Supine Dorsiflexion with Knee Extended 15 Plantarflexion 55 Left Active Ankle/Foot ROM WFL Yes Testing Position Supine Dorsiflexion with Knee Extended 13 Plantarflexion 45 PT-OP-L Special Tests Start: 05/07/19 07:54 Freq: Status: Active Protocol: Document 05/06/19 14:30 HH (Rec: 05/07/19 08:46 HH [email or web address]) Special Tests Knee Special Tests Lateral Pivot Shift Test Results -ve Jose Test Test Results -VE Apley's Compression Test Results -VE Varus- 25 Degrees Test Results -VE Varus- 0 Degrees Test Results -VE Valgus- 25 Degrees Test Results -VE Valgus- 0 Degrees Test Results -VE PT-OP-M Strength Start: 05/07/19 07:54 Freq: Status: Active Protocol: Document 05/06/19 14:30 HH (Rec: 05/07/19 08:46 HH [email or web address]) Hip Strength Hip Manual Muscle Testing Right Flexion (L2) 5 Normal Extension (S1) 5 Normal Abduction 5 Normal Adduction 5 Normal Left Flexion (L2) 4 Good Extension (S1) 4 Good Abduction 4 Good Adduction 4+ Good+ Knee Strength Knee Manual Muscle Testing Right Flexion (S2) 4+ Good+ Extension (L3) 4+ Good+ Left Flexion (S2) 5 Normal Extension (L3) 5 Normal PT-OP-Q Treatments Start: 05/07/19 07:54 Freq: Status: Active Protocol: Document 06/01/19 14:30 DCW (Rec: 06/01/19 15:19 DCW [id number]) Cardio Equipment Bicycle (Upright) Duration (Minutes) 7 Resistance 6 Gym Equipment Shuttle Recovery Unilateral Squats Resistance 62# Shuttle Recovery Platform Stable,Unstable Reps/Time VCs to limit adduction/IR of hips Bilateral Squats Resistance 100# Shuttle Recovery Platform Stable Manual Therapy Treatment Soft Tissue Mobilization R Piriformis Mobilization Type Myofascial Release,Sustained Pressure,Trigger Point Release R ITB Mobilization Type Myofascial Release,Strumming, Trigger Point Release Intensity/Depth Moderate Body Position Supine L calf Body Location L gastroc, soleus, post tib Mobilization Type Cross-Friction,Sustained Pressure,Trigger Point Release Intensity/Depth Moderate Body Position Prone L achilles tendon Mobilization Type Cross-Friction,Sustained Pressure,Trigger Point Release Intensity/Depth Moderate Body Position Prone Joint Mobilizations ant glide Joint talus ant glide Grade III Body Position Supine Comments with PA mob of tibia Manual Techniques Ankle dorsiflexion Type calf stretch Body Location L ankle Body Position Supine Reps/Duration 4 mins PT-OP-T Assessment and Plan Start: 05/07/19 07:54 Freq: Status: Active Protocol: Document 06/01/19 14:30 DCW (Rec: 06/01/19 15:19 DCW [id number]) Physical Therapy Assessment Goals HEP Impairment Pt does not have a HEP Ear Mold Laboratory Technician Goal (LTG) Pt will comply to HEP safely and independently to improve her body awareness and body mechanics for injury prevention LTG Duration 8 weeks hip strength Impairment decreased L hip strength Group Home Goal (LTG) Pt will improve her L hip strength by 1 MMT grade to improve her L hip stability during gait/ running and sports related activities.. LTG Duration 8 weeks return to sports Impairment pt is unable to bike/ swim at this point Short Term Goal (STG) Pt will bike with regular bike / stationary bike and swim with breast stroke 2-3 times/ week with R knee pain no more than 2 STG Duration 4 weeks Ear Mold Laboratory Technician Goal (LTG) Pt will bike with regular bike / stationary bike and swim with breast stroke 4-5 times/ week without R knee pain LTG Duration 8 weeks LEFS Impairment pt scores 76 for LEFS Ear Mold Laboratory Technician Goal (LTG) Pt will score 80 for LEFS to improve her quality of life LTG Duration 8 weeks Assessment Summary Assessment Pt continues to demonstrate an imbalance with her quad use, relying almost exclusively on her later R quad, especially during biking, by internally rotation her right hip. Pt able to correct positioning on both bike and during leg press with verbal cues, but noted that she really had to focus on it. Physical Therapy Plan Frequency and Duration Frequency of Treatment 2x/Week Duration of Treatment 8 weeks Plan of Care Start Date 05/07/19 Plan of Care End Date 07/06/19 Therapeutic Interventions Therapeutic Interventions Balance Training,Gait Training ,Home Exercise Program,Joint Mobilizations,Manual Therapy, Neuromuscular Re-education, Patient/Caregiver Education, Self-Care/Home Management,Soft Tissue Mobilization,Taping, Therapeutic Activities, Therapeutic Exercises Modalities Cold Pack/Ice Massage,Electric Stimulation,Hot Packs, Infrared Therapy,Traction- Mechanical,Ultrasound Next Visit Focus/Plan Next Note Type Treatment Note Next Visit Plan check hip position, hip IR/ER, sacral torsion ankle joint possibly review HEP, hip knee ankle mechanics during ex ankle dynamic ex single leg dynamic ex. calf raise on L VMO strength hip stab, ER strengthening
--- NOTE | 2019-06-03 16:20 | PT.OTN ---
Current Diagnoses Pain in right knee (06/03/19) Physical Therapy Treatment Note PT-OP-A Visit Information Start: 05/07/19 07:54 Freq: Status: Active Protocol: Document 06/03/19 13:48 HH (Rec: 06/03/19 16:20 HH [email or web address]) Out-Patient Physical Therapy Visit Information Visit Information Visit Type Treatment Note Visit Start Time 13:48 Visit Stop Time 14:35 Total Visit Minutes 47 Visit Number 8 Number of TOMOGRAPHIC TECH Visits 0 PT-OP-B Current Condition Start: 05/07/19 07:54 Freq: Status: Active Protocol: Document 05/06/19 14:30 HH (Rec: 05/07/19 08:46 HH [email or web address]) Current Condition History of Current Condition Onset Date Summer 2017 Current Complaints R knee pain, L achilles pain, unable to return to cycling and swimming History of Current Condition Pt is a 48 yo female who presents to clinic with c/o R knee pain since last summer. Pt described her pain located at posterior- medial border of patella. Pain occurs only after repetitive cycling/ swimming with breast stroke. She noticed her pain primarily happen with knee flexion such as sit to stand from low chair, cycling and paddling during swimming. It goes away with inverted foot during cycling. Pt stated she had chronic L achilles pain/ tendonopathy since 3-4 years ago and had PT from this December- March, but she said it did not help. Pt is a very active individual who used to bike and run everyday, and swim 3-4 times a week. She currently just run and play tennis only due to her knee pain. Prior Treatments and Tests Had PT from December-Mar for achilles tendonopathy but unsuccessful. Treatment Goals Patient/Caregiver Goals 1. to be able to bike and swim again without knee pain 2. able to exercises without L achilles pain. Prior Functional Status Baseline Function- ADL's Independent Baseline Function- Mobility Independent Current Functional Impairments (Reported) Functional Limitations- Recreation/ Currently unable to bike on a Hobbies regular bike/ stationary bike unable to swim with breast stroke Functional Limitations- Other R knee pain during STS from low surface. PT-OP-C Subjective Start: 05/07/19 07:54 Freq: Status: Active Protocol: Document 06/03/19 13:48 HH (Rec: 06/03/19 16:20 HH [email or web address]) OP-PT Subjective Patient Comments Patient Comments I havent had any pain since i stopped rolling on my middle quad. I biked on Sat and it was fine. Patient Reported Progress Improving PT-OP-F Manual Assessment Start: 05/07/19 07:54 Freq: Status: Active Protocol: Document 05/06/19 14:30 HH (Rec: 05/07/19 08:46 HH [email or web address]) Manual Assessments Soft Tissue Assessment Soft Tissue Mobility Assessment R lateral quad hypertrophy compared to L thigh R medial quad hypotrophy compared to L thigh Joint Mobility Assessment Joint Mobility Assessment excessive lateral glide of R patella during terminal knee extension PT-OP-G Mobility & Gait Start: 05/07/19 07:54 Freq: Status: Active Protocol: Document 05/06/19 14:30 HH (Rec: 05/07/19 08:46 [email or web address]) OP Gait Assessment Comments Gait Comments noticeable B knee valgus thrust, along with increased pronation on L ankle during loading response PT-OP-J Posture/Palpation/Skin Start: 05/07/19 07:54 Freq: Status: Active Protocol: Document 05/06/19 14:30 HH (Rec: 05/07/19 08:46 HH [email or web address]) Posture Evaluation Position Standing Evaluation View Posterior Weight Distribution Decreased Wt.Bear on (L) Hip Posture (R) Internally Rotated Ankle/Foot Posture (L) Pronated Foot Arch (R) Medium Arch,(L) Low Arch Palpation Assessment Location L achilles Palpation Location insertional achilles Palpation Findings Tenderness Palpation Details significant tenderness to pressure PT-OP-K Range of Motion Start: 05/07/19 07:54 Freq: Status: Active Protocol: Document 05/06/19 14:30 HH (Rec: 05/07/19 08:46 HH [email or web address]) Hip Goniometric Range of Motion Hip Right Active Hip ROM WFL Yes Internal Rotation 35 External Rotation 35 Left Active Hip ROM WFL Yes Internal Rotation 40 External Rotation 25 Knee Goniometric Range of Motion Knee Right Knee ROM WFL Yes Left Knee ROM WFL Yes Ankle and Foot Goniometric Range of Motion Ankle and Foot Right Active Ankle/Foot ROM WFL Yes Testing Position Supine Dorsiflexion with Knee Extended 15 Plantarflexion 55 Left Active Ankle/Foot ROM WFL Yes Testing Position Supine Dorsiflexion with Knee Extended 13 Plantarflexion 45 PT-OP-L Special Tests Start: 05/07/19 07:54 Freq: Status: Active Protocol: Document 05/06/19 14:30 HH (Rec: 05/07/19 08:46 HH [email or web address]) Special Tests Knee Special Tests Lateral Pivot Shift Test Results -ve Jose Test Test Results -VE Apley's Compression Test Results -VE Varus- 25 Degrees Test Results -VE Varus- 0 Degrees Test Results -VE Valgus- 25 Degrees Test Results -VE Valgus- 0 Degrees Test Results -VE PT-OP-M Strength Start: 05/07/19 07:54 Freq: Status: Active Protocol: Document 05/06/19 14:30 HH (Rec: 05/07/19 08:46 [email or web address]) Hip Strength Hip Manual Muscle Testing Right Flexion (L2) 5 Normal Extension (S1) 5 Normal Abduction 5 Normal Adduction 5 Normal Left Flexion (L2) 4 Good Extension (S1) 4 Good Abduction 4 Good Adduction 4+ Good+ Knee Strength Knee Manual Muscle Testing Right Flexion (S2) 4+ Good+ Extension (L3) 4+ Good+ Left Flexion (S2) 5 Normal Extension (L3) 5 Normal PT-OP-Q Treatments Start: 05/07/19 07:54 Freq: Status: Active Protocol: Document 06/03/19 13:48 HH (Rec: 06/03/19 16:20 HH [email or web address]) Cardio Equipment Treadmill Duration (Minutes) 5 Speed 4 Incline 0 Gym Equipment Shuttle Recovery Unilateral Squats Details foot and knee die turner to promote VMO engagement Resistance #75 Shuttle Recovery Platform Stable,Unstable Reps/Time level 2 band to provide knee valgus Therapeutic Exercises Standing Exercises lunges Standing Exercise Name promote R VMO engagement Side right Equipment Used level 2 band to provide knee valgus Comments foot and knee outward standing achilles stretch Side left Equipment Used wedge Reps/Minutes 5 sec x 15 Comments soft knee bent + ankle DF ankle DF Standing Exercise Name lunge ankle DF Side left Reps/Minutes 30 secs x 8 Comments with wedge to promote DF PT-OP-T Assessment and Plan Start: 05/07/19 07:54 Freq: Status: Active Protocol: Document 06/03/19 13:48 HH (Rec: 06/03/19 16:20 HH [email or web address]) Physical Therapy Assessment Goals HEP Impairment Pt does not have a HEP Final Dressing Cutter Goal (LTG) Pt will comply to HEP safely and independently to improve her body awareness and body mechanics for injury prevention LTG Duration 8 weeks hip strength Impairment decreased L hip strength [facility] Goal (LTG) Pt will improve her L hip strength by 1 MMT grade to improve her L hip stability during gait/ running and sports related activities.. LTG Duration 8 weeks return to sports Impairment pt is unable to bike/ swim at this point Short Term Goal (STG) Pt will bike with regular bike / stationary bike and swim with breast stroke 2-3 times/ week with R knee pain no more than 2 STG Duration 4 weeks [facility] Goal (LTG) Pt will bike with regular bike / stationary bike and swim with breast stroke 4-5 times/ week without R knee pain LTG Duration 8 weeks LEFS Impairment pt scores 76 for LEFS Final Dressing Cutter Goal (LTG) Pt will score 80 for LEFS to improve her quality of life LTG Duration 8 weeks Assessment Summary Assessment Pt denies pain and discomfort during session and for the past 7 days. Pt's R lateral quad cont to be very active vs VMO during strengthening ex. Needed cues and foot positioning (toe and knee out) to engage VMO activation. Added lunges with foot out to her HEP. Physical Therapy Plan Next Visit Focus/Plan Next Note Type Treatment Note Next Visit Plan review HEP cont VMO strengthening, L ankle stability, L calf strength and flexibility.
--- NOTE | 2019-06-08 15:17 | PT.OTN ---
Current Diagnoses Pain in right knee (06/08/19) Physical Therapy Treatment Note PT-OP-A Visit Information Start: 05/07/19 07:54 Freq: Status: Active Protocol: Document 06/08/19 14:30 DCW (Rec: 06/08/19 15:16 DCW [id number]) Out-Patient Physical Therapy Visit Information Visit Information Visit Type Treatment Note Visit Start Time 14:30 Visit Stop Time 15:15 Total Visit Minutes 45 Visit Number 9 Number of MEDICAL ARTIST Visits 0 PT-OP-B Current Condition Start: 05/07/19 07:54 Freq: Status: Active Protocol: Document 05/06/19 14:30 HH (Rec: 05/07/19 08:46 HH [email or web address]) Current Condition History of Current Condition Onset Date Summer 2017 Current Complaints R knee pain, L achilles pain, unable to return to cycling and swimming History of Current Condition Pt is a 48 yo female who presents to clinic with c/o R knee pain since last summer. Pt described her pain located at posterior- medial border of patella. Pain occurs only after repetitive cycling/ swimming with breast stroke. She noticed her pain primarily happen with knee flexion such as sit to stand from low chair, cycling and paddling during swimming. It goes away with inverted foot during cycling. Pt stated she had chronic L achilles pain/ tendonopathy since 3-4 years ago and had PT from this December- March, but she said it did not help. Pt is a very active individual who used to bike and run everyday, and swim 3-4 times a week. She currently just run and play tennis only due to her knee pain. Prior Treatments and Tests Had PT from December-Mar for achilles tendonopathy but unsuccessful. Treatment Goals Patient/Caregiver Goals 1. to be able to bike and swim again without knee pain 2. able to exercises without L achilles pain. Prior Functional Status Baseline Function- ADL's Independent Baseline Function- Mobility Independent Current Functional Impairments (Reported) Functional Limitations- Recreation/ Currently unable to bike on a Hobbies regular bike/ stationary bike unable to swim with breast stroke Functional Limitations- Other R knee pain during STS from low surface. PT-OP-C Subjective Start: 05/07/19 07:54 Freq: Status: Active Protocol: Document 06/08/19 14:30 DCW (Rec: 06/08/19 15:17 DCW [id number]) OP-PT Subjective Patient Comments Patient Comments Pt has been having increased R knee pain, but reports she biked to her appointment today , which did not increase her pain. PT-OP-F Manual Assessment Start: 05/07/19 07:54 Freq: Status: Active Protocol: Document 05/06/19 14:30 HH (Rec: 05/07/19 08:46 HH [email or web address]) Manual Assessments Soft Tissue Assessment Soft Tissue Mobility Assessment R lateral quad hypertrophy compared to L thigh R medial quad hypotrophy compared to L thigh Joint Mobility Assessment Joint Mobility Assessment excessive lateral glide of R patella during terminal knee extension PT-OP-G Mobility & Gait Start: 05/07/19 07:54 Freq: Status: Active Protocol: Document 05/06/19 14:30 HH (Rec: 05/07/19 08:46 HH [email or web address]) OP Gait Assessment Comments Gait Comments noticeable B knee valgus thrust, along with increased pronation on L ankle during loading response PT-OP-J Posture/Palpation/Skin Start: 05/07/19 07:54 Freq: Status: Active Protocol: Document 05/06/19 14:30 HH (Rec: 05/07/19 08:46 HH [email or web address]) Posture Evaluation Position Standing Evaluation View Posterior Weight Distribution Decreased Wt.Bear on (L) Hip Posture (R) Internally Rotated Ankle/Foot Posture (L) Pronated Foot Arch (R) Medium Arch,(L) Low Arch Palpation Assessment Location L achilles Palpation Location insertional achilles Palpation Findings Tenderness Palpation Details significant tenderness to pressure PT-OP-K Range of Motion Start: 05/07/19 07:54 Freq: Status: Active Protocol: Document 05/06/19 14:30 HH (Rec: 05/07/19 08:46 HH [email or web address]) Hip Goniometric Range of Motion Hip Right Active Hip ROM WFL Yes Internal Rotation 35 External Rotation 35 Left Active Hip ROM WFL Yes Internal Rotation 40 External Rotation 25 Knee Goniometric Range of Motion Knee Right Knee ROM WFL Yes Left Knee ROM WFL Yes Ankle and Foot Goniometric Range of Motion Ankle and Foot Right Active Ankle/Foot ROM WFL Yes Testing Position Supine Dorsiflexion with Knee Extended 15 Plantarflexion 55 Left Active Ankle/Foot ROM WFL Yes Testing Position Supine Dorsiflexion with Knee Extended 13 Plantarflexion 45 PT-OP-L Special Tests Start: 05/07/19 07:54 Freq: Status: Active Protocol: Document 05/06/19 14:30 HH (Rec: 05/07/19 08:46 HH [email or web address]) Special Tests Knee Special Tests Lateral Pivot Shift Test Results -ve Jose Test Test Results -VE Apley's Compression Test Results -VE Varus- 25 Degrees Test Results -VE Varus- 0 Degrees Test Results -VE Valgus- 25 Degrees Test Results -VE Valgus- 0 Degrees Test Results -VE PT-OP-M Strength Start: 05/07/19 07:54 Freq: Status: Active Protocol: Document 05/06/19 14:30 HH (Rec: 05/07/19 08:46 HH [email or web address]) Hip Strength Hip Manual Muscle Testing Right Flexion (L2) 5 Normal Extension (S1) 5 Normal Abduction 5 Normal Adduction 5 Normal Left Flexion (L2) 4 Good Extension (S1) 4 Good Abduction 4 Good Adduction 4+ Good+ Knee Strength Knee Manual Muscle Testing Right Flexion (S2) 4+ Good+ Extension (L3) 4+ Good+ Left Flexion (S2) 5 Normal Extension (L3) 5 Normal PT-OP-Q Treatments Start: 05/07/19 07:54 Freq: Status: Active Protocol: Document 06/08/19 14:30 DCW (Rec: 06/08/19 15:16 DCW [id number]) Gym Equipment Shuttle Recovery Unilateral Squats Details foot and knee garment turner to promote VMO engagement Resistance #75 Shuttle Recovery Platform Stable,Unstable Reps/Time level 2 band to provide knee valgus Bilateral Squats Resistance 100# Shuttle Recovery Platform Stable Reps/Time level 2 band to provide knee valgus Therapeutic Exercises Standing Exercises lunges Standing Exercise Name promote R VMO engagement Side right Equipment Used BOSU Comments foot and knee outward standing achilles stretch Side left Equipment Used wedge Reps/Minutes 5 sec x 15 Comments soft knee bent + ankle DF ankle DF Standing Exercise Name lunge ankle DF Side left Reps/Minutes 30 secs x 8 Comments with wedge to promote DF Manual Therapy Treatment Soft Tissue Mobilization Psoas Body Location B Psoas Mobilization Type Strumming,Sustained Pressure Body Position Hooklying R Piriformis Mobilization Type Myofascial Release,Sustained Pressure,Trigger Point Release R ITB Mobilization Type Myofascial Release,Strumming, Trigger Point Release Intensity/Depth Moderate Body Position Supine Joint Mobilizations Patella Mobs Joint R patella mobilization Direction Inf/Sup Grade III Body Position Supine PT-OP-T Assessment and Plan Start: 05/07/19 07:54 Freq: Status: Active Protocol: Document 06/08/19 14:30 DCW (Rec: 06/08/19 15:16 DCW [id number]) Physical Therapy Assessment Goals HEP Impairment Pt does not have a HEP [employer] Goal (LTG) Pt will comply to HEP safely and independently to improve her body awareness and body mechanics for injury prevention LTG Duration 8 weeks hip strength Impairment decreased L hip strength [employer] Goal (LTG) Pt will improve her L hip strength by 1 MMT grade to improve her L hip stability during gait/ running and sports related activities.. LTG Duration 8 weeks return to sports Impairment pt is unable to bike/ swim at this point Short Term Goal (STG) Pt will bike with regular bike / stationary bike and swim with breast stroke 2-3 times/ week with R knee pain no more than 2 STG Duration 4 weeks Alf Goal (LTG) Pt will bike with regular bike / stationary bike and swim with breast stroke 4-5 times/ week without R knee pain LTG Duration 8 weeks LEFS Impairment pt scores 76 for LEFS Alf Goal (LTG) Pt will score 80 for LEFS to improve her quality of life LTG Duration 8 weeks Assessment Summary Assessment Pt has been experiencing increased overall pain recently, but seemed to respond well to patellar mobilizations to improve inf/ sup glide. Physical Therapy Plan Frequency and Duration Frequency of Treatment 2x/Week Duration of Treatment 8 weeks Plan of Care Start Date 05/07/19 Plan of Care End Date 07/06/19 Therapeutic Interventions Therapeutic Interventions Balance Training,Gait Training ,Home Exercise Program,Joint Mobilizations,Manual Therapy, Neuromuscular Re-education, Patient/Caregiver Education, Self-Care/Home Management,Soft Tissue Mobilization,Taping, Therapeutic Activities, Therapeutic Exercises Modalities Cold Pack/Ice Massage,Electric Stimulation,Hot Packs, Infrared Therapy,Traction- Mechanical,Ultrasound Next Visit Focus/Plan Next Note Type Treatment Note Next Visit Plan check hip position, hip IR/ER, sacral torsion ankle joint possibly review HEP, hip knee ankle mechanics during ex ankle dynamic ex single leg dynamic ex. calf raise on L VMO strength hip stab, ER strengthening
--- NOTE | 2019-06-10 15:15 | PT.OTN ---
Current Diagnoses Pain in right knee (06/10/19) Physical Therapy Treatment Note PT-OP-A Visit Information Start: 05/07/19 07:54 Freq: Status: Active Protocol: Document 06/10/19 15:15 SP (Rec: 06/10/19 15:48 SP [email or web address]) Out-Patient Physical Therapy Visit Information Visit Information Visit Type Treatment Note Visit Start Time 14:30 Visit Stop Time 15:15 Total Visit Minutes 45 Visit Number 10 Number of CO FOUNDER & CEO Visits 1 PT-OP-B Current Condition Start: 05/07/19 07:54 Freq: Status: Active Protocol: Document 05/06/19 14:30 HH (Rec: 05/07/19 08:46 HH [email or web address]) Current Condition History of Current Condition Onset Date Summer 2017 Current Complaints R knee pain, L achilles pain, unable to return to cycling and swimming History of Current Condition Pt is a 48 yo female who presents to clinic with c/o R knee pain since last summer. Pt described her pain located at posterior- medial border of patella. Pain occurs only after repetitive cycling/ swimming with breast stroke. She noticed her pain primarily happen with knee flexion such as sit to stand from low chair, cycling and paddling during swimming. It goes away with inverted foot during cycling. Pt stated she had chronic L achilles pain/ tendonopathy since 3-4 years ago and had PT from this December- March, but she said it did not help. Pt is a very active individual who used to bike and run everyday, and swim 3-4 times a week. She currently just run and play tennis only due to her knee pain. Prior Treatments and Tests Had PT from December-Mar for achilles tendonopathy but unsuccessful. Treatment Goals Patient/Caregiver Goals 1. to be able to bike and swim again without knee pain 2. able to exercises without L achilles pain. Prior Functional Status Baseline Function- ADL's Independent Baseline Function- Mobility Independent Current Functional Impairments (Reported) Functional Limitations- Recreation/ Currently unable to bike on a Hobbies regular bike/ stationary bike unable to swim with breast stroke Functional Limitations- Other R knee pain during STS from low surface. PT-OP-C Subjective Start: 05/07/19 07:54 Freq: Status: Active Protocol: Document 06/10/19 15:15 SP (Rec: 06/10/19 15:48 SP [email or web address]) OP-PT Subjective Patient Comments Patient Comments Pt stated has been pretty sore over R lateral thigh to mid ITB, foam rolled it earlier with more focus than full length rolling. Compliant with all HEP 2x daily. PT-OP-F Manual Assessment Start: 05/07/19 07:54 Freq: Status: Active Protocol: Document 05/06/19 14:30 HH (Rec: 05/07/19 08:46 HH [email or web address]) Manual Assessments Soft Tissue Assessment Soft Tissue Mobility Assessment R lateral quad hypertrophy compared to L thigh R medial quad hypotrophy compared to L thigh Joint Mobility Assessment Joint Mobility Assessment excessive lateral glide of R patella during terminal knee extension PT-OP-G Mobility & Gait Start: 05/07/19 07:54 Freq: Status: Active Protocol: Document 05/06/19 14:30 HH (Rec: 05/07/19 08:46 HH [email or web address]) OP Gait Assessment Comments Gait Comments noticeable B knee valgus thrust, along with increased pronation on L ankle during loading response PT-OP-J Posture/Palpation/Skin Start: 05/07/19 07:54 Freq: Status: Active Protocol: Document 05/06/19 14:30 HH (Rec: 05/07/19 08:46 HH [email or web address]) Posture Evaluation Position Standing Evaluation View Posterior Weight Distribution Decreased Wt.Bear on (L) Hip Posture (R) Internally Rotated Ankle/Foot Posture (L) Pronated Foot Arch (R) Medium Arch,(L) Low Arch Palpation Assessment Location L achilles Palpation Location insertional achilles Palpation Findings Tenderness Palpation Details significant tenderness to pressure PT-OP-K Range of Motion Start: 05/07/19 07:54 Freq: Status: Active Protocol: Document 05/06/19 14:30 HH (Rec: 05/07/19 08:46 HH [email or web address]) Hip Goniometric Range of Motion Hip Right Active Hip ROM WFL Yes Internal Rotation 35 External Rotation 35 Left Active Hip ROM WFL Yes Internal Rotation 40 External Rotation 25 Knee Goniometric Range of Motion Knee Right Knee ROM WFL Yes Left Knee ROM WFL Yes Ankle and Foot Goniometric Range of Motion Ankle and Foot Right Active Ankle/Foot ROM WFL Yes Testing Position Supine Dorsiflexion with Knee Extended 15 Plantarflexion 55 Left Active Ankle/Foot ROM WFL Yes Testing Position Supine Dorsiflexion with Knee Extended 13 Plantarflexion 45 PT-OP-L Special Tests Start: 05/07/19 07:54 Freq: Status: Active Protocol: Document 05/06/19 14:30 HH (Rec: 05/07/19 08:46 HH [email or web address]) Special Tests Knee Special Tests Lateral Pivot Shift Test Results -ve Jose Test Test Results -VE Apley's Compression Test Results -VE Varus- 25 Degrees Test Results -VE Varus- 0 Degrees Test Results -VE Valgus- 25 Degrees Test Results -VE Valgus- 0 Degrees Test Results -VE PT-OP-M Strength Start: 05/07/19 07:54 Freq: Status: Active Protocol: Document 05/06/19 14:30 HH (Rec: 05/07/19 08:46 HH [email or web address]) Hip Strength Hip Manual Muscle Testing Right Flexion (L2) 5 Normal Extension (S1) 5 Normal Abduction 5 Normal Adduction 5 Normal Left Flexion (L2) 4 Good Extension (S1) 4 Good Abduction 4 Good Adduction 4+ Good+ Knee Strength Knee Manual Muscle Testing Right Flexion (S2) 4+ Good+ Extension (L3) 4+ Good+ Left Flexion (S2) 5 Normal Extension (L3) 5 Normal PT-OP-Q Treatments Start: 05/07/19 07:54 Freq: Status: Active Protocol: Document 06/10/19 15:15 SP (Rec: 06/10/19 15:48 SP [email or web address]) Therapeutic Exercises Supine Exercises bridge abd Supine Exercise Name bridge w/ hip abd Resistance Level 2 TB Reps/Minutes 2x10 off table, x10 off swis ball Comments cued neutral pelvis/PPT, mid foot/heel press glut med /max facilitation HS stretch Supine Exercise Name HS stretch with ankle pump Side bilateral Resistance AROM Reps/Minutes x10 ITB Stretch Side right Equipment Used strap Reps/Minutes 30 x3 Comments cross over LLE Sidelying Exercises ITB/quad Side right Resistance modified body wt Equipment Used foam roller Reps/Minutes 30 sec Comments LLE weighted into ground, can stay focused on small area if tolerant Standing Exercises ITB stretch Side right Equipment Used wall Reps/Minutes 30 x3 Comments ITB R side toward wall, posterior lean into ITB distal stretch single leg Standing Exercise Name cable pull (hip hinge) Side bilateral Resistance Tube blue Reps/Minutes 3x10 Comments forward pelvis, hip hinge/ thrust glut facilitation, soft knee align toes lunges Standing Exercise Name promote R VMO engagement Side right Equipment Used BOSU Comments foot and knee outward standing achilles stretch Side left Equipment Used wedge Reps/Minutes 5 sec x 15 Comments soft knee bent + ankle DF step up/down Standing Exercise Name Eccentric step down Side bilateral Resistance body wt Equipment Used BOSU contact support Reps/Minutes 2x10 Comments knee alignment with and behind toes PT-OP-T Assessment and Plan Start: 05/07/19 07:54 Freq: Status: Active Protocol: Document 06/10/19 15:15 SP (Rec: 06/10/19 15:48 SP [email or web address]) Physical Therapy Assessment Goals HEP Impairment Pt does not have a HEP Barrel Tester And Drainer Goal (LTG) Pt will comply to HEP safely and independently to improve her body awareness and body mechanics for injury prevention LTG Duration 8 weeks hip strength Impairment decreased L hip strength Barrel Tester And Drainer Goal (LTG) Pt will improve her L hip strength by 1 MMT grade to improve her L hip stability during gait/ running and sports related activities.. LTG Duration 8 weeks return to sports Impairment pt is unable to bike/ swim at this point Short Term Goal (STG) Pt will bike with regular bike / stationary bike and swim with breast stroke 2-3 times/ week with R knee pain no more than 2 STG Duration 4 weeks Barrel Tester And Drainer Goal (LTG) Pt will bike with regular bike / stationary bike and swim with breast stroke 4-5 times/ week without R knee pain LTG Duration 8 weeks LEFS Impairment pt scores 76 for LEFS Long-Term Goal (LTG) Pt will score 80 for LEFS to improve her quality of life LTG Duration 8 weeks Assessment Summary Assessment Pt stated having more pain over anterolateral mid R ITB/ quad, rolled more focused pre PT and was to much. Provided alternative ITb stretching at wall and supine usign strap with positive feedback results . Reviewed HEP with good recall and form. Provided added SL BOSU eccentric step downs and SL cable pull hip hinge/thrust with cuing for VMO facilitation and contact support for stability with positive feedback of tiring. Recommended to assess number of HEP doing and pick 3-4, change am/pm so not over working. No pain end of tx. Physical Therapy Plan Frequency and Duration Frequency of Treatment 2x/Week Duration of Treatment 8 weeks Plan of Care Start Date 05/07/19 Plan of Care End Date 07/06/19 Therapeutic Interventions Therapeutic Interventions Balance Training,Gait Training ,Home Exercise Program,Joint Mobilizations,Manual Therapy, Neuromuscular Re-education, Patient/Caregiver Education, Self-Care/Home Management,Soft Tissue Mobilization,Taping, Therapeutic Activities, Therapeutic Exercises Modalities Cold Pack/Ice Massage,Electric Stimulation,Hot Packs, Infrared Therapy,Traction- Mechanical,Ultrasound Next Visit Focus/Plan Next Note Type Treatment Note Next Visit Plan check hip position, hip IR/ER, sacral torsion ankle joint possibly review HEP, hip knee ankle mechanics during ex ankle dynamic ex single leg dynamic ex. calf raise on L VMO strength hip stab, ER strengthening
--- NOTE | 2019-06-19 16:34 | PT.OTN ---
Current Diagnoses Pain in right knee (06/19/19) Physical Therapy Treatment Note PT-OP-A Visit Information Start: 05/07/19 07:54 Freq: Status: Active Protocol: Document 06/19/19 14:32 HH (Rec: 06/19/19 16:34 [id number]) Out-Patient Physical Therapy Visit Information Visit Information Visit Type Treatment Note Visit Start Time 14:32 Visit Stop Time 15:16 Total Visit Minutes 45 Visit Number 11 Number of DIRECTOR OF MUSIC THERAPY Visits 0 PT-OP-B Current Condition Start: 05/07/19 07:54 Freq: Status: Active Protocol: Document 05/06/19 14:30 HH (Rec: 05/07/19 08:46 HH [email or web address]) Current Condition History of Current Condition Onset Date Summer 2017 Current Complaints R knee pain, L achilles pain, unable to return to cycling and swimming History of Current Condition Pt is a 48 yo female who presents to clinic with c/o R knee pain since last summer. Pt described her pain located at posterior- medial border of patella. Pain occurs only after repetitive cycling/ swimming with breast stroke. She noticed her pain primarily happen with knee flexion such as sit to stand from low chair, cycling and paddling during swimming. It goes away with inverted foot during cycling. Pt stated she had chronic L achilles pain/ tendonopathy since 3-4 years ago and had PT from this December- March, but she said it did not help. Pt is a very active individual who used to bike and run everyday, and swim 3-4 times a week. She currently just run and play tennis only due to her knee pain. Prior Treatments and Tests Had PT from December-Mar for achilles tendonopathy but unsuccessful. Treatment Goals Patient/Caregiver Goals 1. to be able to bike and swim again without knee pain 2. able to exercises without L achilles pain. Prior Functional Status Baseline Function- ADL's Independent Baseline Function- Mobility Independent Current Functional Impairments (Reported) Functional Limitations- Recreation/ Currently unable to bike on a Hobbies regular bike/ stationary bike unable to swim with breast stroke Functional Limitations- Other R knee pain during STS from low surface. PT-OP-C Subjective Start: 05/07/19 07:54 Freq: Status: Active Protocol: Document 06/19/19 14:32 HH (Rec: 06/19/19 16:34 [email or web address]) OP-PT Subjective Patient Comments Patient Comments My knee has been doing pretty good. Able to bike at home without any pain. I am very aware of my knee position while exercising. Patient Reported Progress Improving PT-OP-F Manual Assessment Start: 05/07/19 07:54 Freq: Status: Active Protocol: Document 05/06/19 14:30 HH (Rec: 05/07/19 08:46 HH [email or web address]) Manual Assessments Soft Tissue Assessment Soft Tissue Mobility Assessment R lateral quad hypertrophy compared to L thigh R medial quad hypotrophy compared to L thigh Joint Mobility Assessment Joint Mobility Assessment excessive lateral glide of R patella during terminal knee extension PT-OP-G Mobility & Gait Start: 05/07/19 07:54 Freq: Status: Active Protocol: Document 05/06/19 14:30 HH (Rec: 05/07/19 08:46 HH [email or web address]) OP Gait Assessment Comments Gait Comments noticeable B knee valgus thrust, along with increased pronation on L ankle during loading response PT-OP-J Posture/Palpation/Skin Start: 05/07/19 07:54 Freq: Status: Active Protocol: Document 05/06/19 14:30 HH (Rec: 05/07/19 08:46 HH [email or web address]) Posture Evaluation Position Standing Evaluation View Posterior Weight Distribution Decreased Wt.Bear on (L) Hip Posture (R) Internally Rotated Ankle/Foot Posture (L) Pronated Foot Arch (R) Medium Arch,(L) Low Arch Palpation Assessment Location L achilles Palpation Location insertional achilles Palpation Findings Tenderness Palpation Details significant tenderness to pressure PT-OP-K Range of Motion Start: 05/07/19 07:54 Freq: Status: Active Protocol: Document 05/06/19 14:30 HH (Rec: 05/07/19 08:46 HH [email or web address]) Hip Goniometric Range of Motion Hip Right Active Hip ROM WFL Yes Internal Rotation 35 External Rotation 35 Left Active Hip ROM WFL Yes Internal Rotation 40 External Rotation 25 Knee Goniometric Range of Motion Knee Right Knee ROM WFL Yes Left Knee ROM WFL Yes Ankle and Foot Goniometric Range of Motion Ankle and Foot Right Active Ankle/Foot ROM WFL Yes Testing Position Supine Dorsiflexion with Knee Extended 15 Plantarflexion 55 Left Active Ankle/Foot ROM WFL Yes Testing Position Supine Dorsiflexion with Knee Extended 13 Plantarflexion 45 PT-OP-L Special Tests Start: 05/07/19 07:54 Freq: Status: Active Protocol: Document 05/06/19 14:30 HH (Rec: 05/07/19 08:46 HH [email or web address]) Special Tests Knee Special Tests Lateral Pivot Shift Test Results -ve Jose Test Test Results -VE Apley's Compression Test Results -VE Varus- 25 Degrees Test Results -VE Varus- 0 Degrees Test Results -VE Valgus- 25 Degrees Test Results -VE Valgus- 0 Degrees Test Results -VE PT-OP-M Strength Start: 05/07/19 07:54 Freq: Status: Active Protocol: Document 05/06/19 14:30 HH (Rec: 05/07/19 08:46 HH [email or web address]) Hip Strength Hip Manual Muscle Testing Right Flexion (L2) 5 Normal Extension (S1) 5 Normal Abduction 5 Normal Adduction 5 Normal Left Flexion (L2) 4 Good Extension (S1) 4 Good Abduction 4 Good Adduction 4+ Good+ Knee Strength Knee Manual Muscle Testing Right Flexion (S2) 4+ Good+ Extension (L3) 4+ Good+ Left Flexion (S2) 5 Normal Extension (L3) 5 Normal PT-OP-Q Treatments Start: 05/07/19 07:54 Freq: Status: Active Protocol: Document 06/19/19 14:32 HH (Rec: 06/19/19 16:34 HH [id number]) Cardio Equipment Bicycle (Upright) Duration (Minutes) 6 Resistance 8 Gym Equipment Shuttle Recovery Unilateral Squats Details foot and knee return to factory clerk to promote VMO engagement Resistance #75 Shuttle Recovery Platform Stable,Unstable Reps/Time level 2 band to provide knee valgus Therapeutic Exercises Standing Exercises lunges Standing Exercise Name promote R VMO engagement Side right Equipment Used BOSU Comments foot and knee outward ankle DF Standing Exercise Name lunge ankle DF Side left Reps/Minutes 30 secs x 8 Comments with wedge to promote DF step up/down Standing Exercise Name Eccentric step down Side bilateral Resistance body wt Equipment Used from 16 inch box Reps/Minutes 10 x 3 Comments knee alignment with and behind toes RDL Side bilateral Reps/Minutes 10 x2 geno disk Standing Exercise Name side lunges on geno disks Side bilateral Reps/Minutes 8 x 3 Neuro Re-Education Treatment Balance Activities lunges Details forward lunge Surface on geno disk Reps/Duration 8 x 3 ankle stability Details SLS with ball toss Surface blue foam Reps/Duration 5 mins PT-OP-T Assessment and Plan Start: 05/07/19 07:54 Freq: Status: Active Protocol: Document 06/19/19 14:32 HH (Rec: 06/19/19 16:34 HH [email or web address]) Physical Therapy Assessment Goals HEP Impairment Pt does not have a HEP Alf Goal (LTG) Pt will comply to HEP safely and independently to improve her body awareness and body mechanics for injury prevention LTG Duration 8 weeks hip strength Impairment decreased L hip strength Alf Goal (LTG) Pt will improve her L hip strength by 1 MMT grade to improve her L hip stability during gait/ running and sports related activities.. LTG Duration 8 weeks return to sports Impairment pt is unable to bike/ swim at this point Short Term Goal (STG) Pt will bike with regular bike / stationary bike and swim with breast stroke 2-3 times/ week with R knee pain no more than 2 STG Duration 4 weeks Orthopedic Physician Assistant Goal (LTG) Pt will bike with regular bike / stationary bike and swim with breast stroke 4-5 times/ week without R knee pain LTG Duration 8 weeks LEFS Impairment pt scores 76 for LEFS Orthopedic Physician Assistant Goal (LTG) Pt will score 80 for LEFS to improve her quality of life LTG Duration 8 weeks Assessment Summary Assessment Pt showed improved L ankle stability and body awareness during single leg activities. Her knee to wall test has 1.5 inches difference between L and R foot. Pt did not c/o any knee pain during session. consider d/c after next week. Physical Therapy Plan Next Visit Focus/Plan Next Note Type Treatment Note Next Visit Plan review HEP, hip knee ankle mechanics during ex ankle dynamic ex single leg dynamic ex. calf raise on L VMO strength hip stab, ER strengthening
--- NOTE | 2019-06-23 15:29 | PT.OTN ---
Current Diagnoses Pain in right knee (06/23/19) Physical Therapy Treatment Note PT-OP-A Visit Information Start: 05/07/19 07:54 Freq: Status: Active Protocol: Document 06/23/19 14:32 HH (Rec: 06/23/19 15:26 HH [id number]) Out-Patient Physical Therapy Visit Information Visit Information Visit Type Treatment Note Visit Start Time 14:32 Visit Stop Time 15:16 Total Visit Minutes 44 Visit Number 07/24 Number of AIR AND HYDRONIC BALANCING TECHNICIAN Visits 0 PT-OP-B Current Condition Start: 05/07/19 07:54 Freq: Status: Active Protocol: Document 05/06/19 14:30 HH (Rec: 05/07/19 08:46 HH [email or web address]) Current Condition History of Current Condition Onset Date Summer 2017 Current Complaints R knee pain, L achilles pain, unable to return to cycling and swimming History of Current Condition Pt is a 48 yo female who presents to clinic with c/o R knee pain since last summer. Pt described her pain located at posterior- medial border of patella. Pain occurs only after repetitive cycling/ swimming with breast stroke. She noticed her pain primarily happen with knee flexion such as sit to stand from low chair, cycling and paddling during swimming. It goes away with inverted foot during cycling. Pt stated she had chronic L achilles pain/ tendonopathy since 3-4 years ago and had PT from this December- March, but she said it did not help. Pt is a very active individual who used to bike and run everyday, and swim 3-4 times a week. She currently just run and play tennis only due to her knee pain. Prior Treatments and Tests Had PT from December-Mar for achilles tendonopathy but unsuccessful. Treatment Goals Patient/Caregiver Goals 1. to be able to bike and swim again without knee pain 2. able to exercises without L achilles pain. Prior Functional Status Baseline Function- ADL's Independent Baseline Function- Mobility Independent Current Functional Impairments (Reported) Functional Limitations- Recreation/ Currently unable to bike on a Hobbies regular bike/ stationary bike unable to swim with breast stroke Functional Limitations- Other R knee pain during STS from low surface. PT-OP-C Subjective Start: 05/07/19 07:54 Freq: Status: Active Protocol: Document 06/23/19 14:32 HH (Rec: 06/23/19 15:26 HH [id number]) OP-PT Subjective Patient Comments Patient Comments My knee has been feeling really good. I biked this morning and made sure to keep my knees out and I feel good. Patient Reported Progress Improving PT-OP-F Manual Assessment Start: 05/07/19 07:54 Freq: Status: Active Protocol: Document 05/06/19 14:30 HH (Rec: 05/07/19 08:46 HH [email or web address]) Manual Assessments Soft Tissue Assessment Soft Tissue Mobility Assessment R lateral quad hypertrophy compared to L thigh R medial quad hypotrophy compared to L thigh Joint Mobility Assessment Joint Mobility Assessment excessive lateral glide of R patella during terminal knee extension PT-OP-G Mobility & Gait Start: 05/07/19 07:54 Freq: Status: Active Protocol: Document 05/06/19 14:30 HH (Rec: 05/07/19 08:46 [email or web address]) OP Gait Assessment Comments Gait Comments noticeable B knee valgus thrust, along with increased pronation on L ankle during loading response PT-OP-J Posture/Palpation/Skin Start: 05/07/19 07:54 Freq: Status: Active Protocol: Document 05/06/19 14:30 HH (Rec: 05/07/19 08:46 HH [email or web address]) Posture Evaluation Position Standing Evaluation View Posterior Weight Distribution Decreased Wt.Bear on (L) Hip Posture (R) Internally Rotated Ankle/Foot Posture (L) Pronated Foot Arch (R) Medium Arch,(L) Low Arch Palpation Assessment Location L achilles Palpation Location insertional achilles Palpation Findings Tenderness Palpation Details significant tenderness to pressure PT-OP-K Range of Motion Start: 05/07/19 07:54 Freq: Status: Active Protocol: Document 05/06/19 14:30 HH (Rec: 05/07/19 08:46 HH [email or web address]) Hip Goniometric Range of Motion Hip Right Active Hip ROM WFL Yes Internal Rotation 35 External Rotation 35 Left Active Hip ROM WFL Yes Internal Rotation 40 External Rotation 25 Knee Goniometric Range of Motion Knee Right Knee ROM WFL Yes Left Knee ROM WFL Yes Ankle and Foot Goniometric Range of Motion Ankle and Foot Right Active Ankle/Foot ROM WFL Yes Testing Position Supine Dorsiflexion with Knee Extended 15 Plantarflexion 55 Left Active Ankle/Foot ROM WFL Yes Testing Position Supine Dorsiflexion with Knee Extended 13 Plantarflexion 45 PT-OP-L Special Tests Start: 05/07/19 07:54 Freq: Status: Active Protocol: Document 05/06/19 14:30 HH (Rec: 05/07/19 08:46 [email or web address]) Special Tests Knee Special Tests Lateral Pivot Shift Test Results -ve Jose Test Test Results -VE Apley's Compression Test Results -VE Varus- 25 Degrees Test Results -VE Varus- 0 Degrees Test Results -VE Valgus- 25 Degrees Test Results -VE Valgus- 0 Degrees Test Results -VE PT-OP-M Strength Start: 05/07/19 07:54 Freq: Status: Active Protocol: Document 05/06/19 14:30 HH (Rec: 05/07/19 08:46 [email or web address]) Hip Strength Hip Manual Muscle Testing Right Flexion (L2) 5 Normal Extension (S1) 5 Normal Abduction 5 Normal Adduction 5 Normal Left Flexion (L2) 4 Good Extension (S1) 4 Good Abduction 4 Good Adduction 4+ Good+ Knee Strength Knee Manual Muscle Testing Right Flexion (S2) 4+ Good+ Extension (L3) 4+ Good+ Left Flexion (S2) 5 Normal Extension (L3) 5 Normal PT-OP-Q Treatments Start: 05/07/19 07:54 Freq: Status: Active Protocol: Document 06/23/19 14:32 HH (Rec: 06/23/19 15:26 [id number]) Cardio Equipment Bicycle (Upright) Duration (Minutes) 6 Resistance 8 to 10 Therapeutic Exercises Supine Exercises Tib ant isometrics Side left Resistance manual Reps/Minutes 10x10 Standing Exercises standing achilles stretch Standing Exercise Name single leg Side bilateral Equipment Used stair Reps/Minutes 10x10 Comments knee straight f/b knee bent; cuing to keep toes straight forward Manual Therapy Treatment Soft Tissue Mobilization L calf Mobilization Type Rolling,Strumming,Sustained Pressure Intensity/Depth Moderate Body Position Prone L achilles tendon Mobilization Type Rolling,Strumming,Sustained Pressure Intensity/Depth Moderate Body Position Prone Comments static f/b with ankle pumps Joint Mobilizations ant glide Joint L talocrural Direction ant Grade III Body Position Supine Reps/Duration 10x10 PT-OP-T Assessment and Plan Start: 05/07/19 07:54 Freq: Status: Active Protocol: Document 06/23/19 14:32 HH (Rec: 06/23/19 15:26 HH [id number]) Physical Therapy Assessment Goals HEP Impairment Pt does not have a HEP [employer] Goal (LTG) Pt will comply to HEP safely and independently to improve her body awareness and body mechanics for injury prevention LTG Duration 8 weeks hip strength Impairment decreased L hip strength Skilled Nursing Goal (LTG) Pt will improve her L hip strength by 1 MMT grade to improve her L hip stability during gait/ running and sports related activities.. LTG Duration 8 weeks return to sports Impairment pt is unable to bike/ swim at this point Short Term Goal (STG) Pt will bike with regular bike / stationary bike and swim with breast stroke 2-3 times/ week with R knee pain no more than 2 STG Duration 4 weeks [employer] Goal (LTG) Pt will bike with regular bike / stationary bike and swim with breast stroke 4-5 times/ week without R knee pain LTG Duration 8 weeks LEFS Impairment pt scores 76 for LEFS [employer] Goal (LTG) Pt will score 80 for LEFS to improve her quality of life LTG Duration 8 weeks Assessment Summary Assessment Cont to report improved symptoms and body awareness during physical activities. Knee wall test at start of session: L 1.5 in, R 2.8 in. Progressed to L 1.6in after manual therapy. Modified pt's heel stretch on step by increasing knee flexion and neutralize foot position. Physical Therapy Plan Next Visit Focus/Plan Next Note Type Treatment Note Next Visit Plan reassess knee to wall test review HEP cont single leg strengtehning ex.
--- NOTE | 2019-06-26 16:22 | PT.OTN ---
Current Diagnoses Pain in right knee (06/26/19) Physical Therapy Treatment Note PT-OP-A Visit Information Start: 05/07/19 07:54 Freq: Status: Active Protocol: Document 06/26/19 14:32 HH (Rec: 06/26/19 16:22 HH [email or web address]) Out-Patient Physical Therapy Visit Information Visit Information Visit Type Discharge Summary Visit Start Time 14:32 Visit Stop Time 15:15 Total Visit Minutes 43 Visit Number 13 Number of HOUSECLEANER FLOOR Visits 0 PT-OP-B Current Condition Start: 05/07/19 07:54 Freq: Status: Active Protocol: Document 05/06/19 14:30 HH (Rec: 05/07/19 08:46 HH [email or web address]) Current Condition History of Current Condition Onset Date Summer 2017 Current Complaints R knee pain, L achilles pain, unable to return to cycling and swimming History of Current Condition Pt is a 48 yo female who presents to clinic with c/o R knee pain since last summer. Pt described her pain located at posterior- medial border of patella. Pain occurs only after repetitive cycling/ swimming with breast stroke. She noticed her pain primarily happen with knee flexion such as sit to stand from low chair, cycling and paddling during swimming. It goes away with inverted foot during cycling. Pt stated she had chronic L achilles pain/ tendonopathy since 3-4 years ago and had PT from this December- March, but she said it did not help. Pt is a very active individual who used to bike and run everyday, and swim 3-4 times a week. She currently just run and play tennis only due to her knee pain. Prior Treatments and Tests Had PT from December-Mar for achilles tendonopathy but unsuccessful. Treatment Goals Patient/Caregiver Goals 1. to be able to bike and swim again without knee pain 2. able to exercises without L achilles pain. Prior Functional Status Baseline Function- ADL's Independent Baseline Function- Mobility Independent Current Functional Impairments (Reported) Functional Limitations- Recreation/ Currently unable to bike on a Hobbies regular bike/ stationary bike unable to swim with breast stroke Functional Limitations- Other R knee pain during STS from low surface. PT-OP-C Subjective Start: 05/07/19 07:54 Freq: Status: Active Protocol: Document 06/26/19 14:32 HH (Rec: 06/26/19 16:22 HH [email or web address]) OP-PT Subjective Patient Comments Patient Comments Divina feeling good and able to bike consistently. Patient Reported Progress Improving PT-OP-F Manual Assessment Start: 05/07/19 07:54 Freq: Status: Active Protocol: Document 05/06/19 14:30 HH (Rec: 05/07/19 08:46 [email or web address]) Manual Assessments Soft Tissue Assessment Soft Tissue Mobility Assessment R lateral quad hypertrophy compared to L thigh R medial quad hypotrophy compared to L thigh Joint Mobility Assessment Joint Mobility Assessment excessive lateral glide of R patella during terminal knee extension PT-OP-G Mobility & Gait Start: 05/07/19 07:54 Freq: Status: Active Protocol: Document 05/06/19 14:30 HH (Rec: 05/07/19 08:46 [email or web address]) OP Gait Assessment Comments Gait Comments noticeable B knee valgus thrust, along with increased pronation on L ankle during loading response PT-OP-J Posture/Palpation/Skin Start: 05/07/19 07:54 Freq: Status: Active Protocol: Document 05/06/19 14:30 HH (Rec: 05/07/19 08:46 [email or web address]) Posture Evaluation Position Standing Evaluation View Posterior Weight Distribution Decreased Wt.Bear on (L) Hip Posture (R) Internally Rotated Ankle/Foot Posture (L) Pronated Foot Arch (R) Medium Arch,(L) Low Arch Palpation Assessment Location L achilles Palpation Location insertional achilles Palpation Findings Tenderness Palpation Details significant tenderness to pressure PT-OP-K Range of Motion Start: 05/07/19 07:54 Freq: Status: Active Protocol: Document 05/06/19 14:30 HH (Rec: 05/07/19 08:46 [email or web address]) Hip Goniometric Range of Motion Hip Right Active Hip ROM WFL Yes Internal Rotation 35 External Rotation 35 Left Active Hip ROM WFL Yes Internal Rotation 40 External Rotation 25 Knee Goniometric Range of Motion Knee Right Knee ROM WFL Yes Left Knee ROM WFL Yes Ankle and Foot Goniometric Range of Motion Ankle and Foot Right Active Ankle/Foot ROM WFL Yes Testing Position Supine Dorsiflexion with Knee Extended 15 Plantarflexion 55 Left Active Ankle/Foot ROM WFL Yes Testing Position Supine Dorsiflexion with Knee Extended 13 Plantarflexion 45 PT-OP-L Special Tests Start: 05/07/19 07:54 Freq: Status: Active Protocol: Document 05/06/19 14:30 HH (Rec: 05/07/19 08:46 [email or web address]) Special Tests Knee Special Tests Lateral Pivot Shift Test Results -ve Jose Test Test Results -VE Apley's Compression Test Results -VE Varus- 25 Degrees Test Results -VE Varus- 0 Degrees Test Results -VE Valgus- 25 Degrees Test Results -VE Valgus- 0 Degrees Test Results -VE PT-OP-M Strength Start: 05/07/19 07:54 Freq: Status: Active Protocol: Document 05/06/19 14:30 HH (Rec: 05/07/19 08:46 [email or web address]) Hip Strength Hip Manual Muscle Testing Right Flexion (L2) 5 Normal Extension (S1) 5 Normal Abduction 5 Normal Adduction 5 Normal Left Flexion (L2) 4 Good Extension (S1) 4 Good Abduction 4 Good Adduction 4+ Good+ Knee Strength Knee Manual Muscle Testing Right Flexion (S2) 4+ Good+ Extension (L3) 4+ Good+ Left Flexion (S2) 5 Normal Extension (L3) 5 Normal PT-OP-Q Treatments Start: 05/07/19 07:54 Freq: Status: Active Protocol: Document 06/26/19 14:32 HH (Rec: 06/26/19 16:22 [email or web address]) Cardio Equipment Bicycle (Upright) Duration (Minutes) 6 Resistance 8 to 10 Therapeutic Exercises Standing Exercises lunges Standing Exercise Name promote R VMO engagement Side right Equipment Used BOSU Comments foot and knee outward standing achilles stretch Standing Exercise Name single leg Side bilateral Equipment Used stair Reps/Minutes 10x10 Comments knee straight f/b knee bent; cuing to keep toes straight forward ankle DF Standing Exercise Name lunge ankle DF Side left Reps/Minutes 30 secs x 8 Comments with wedge to promote DF Manual Therapy Treatment Soft Tissue Mobilization L achilles tendon Mobilization Type Instrument Assisted,Rolling, Strumming,Sustained Pressure Intensity/Depth Moderate Body Position Prone Comments static f/b with ankle pumps PT-OP-T Assessment and Plan Start: 05/07/19 07:54 Freq: Status: Active Protocol: Document 06/26/19 14:32 HH (Rec: 06/26/19 16:22 [email or web address]) Physical Therapy Assessment Goals HEP Impairment Pt does not have a HEP Prison Goal (LTG) goal met 06/26; Pt comply to daily HEP LTG Duration 8 weeks hip strength Impairment decreased L hip strength Business Account Executive Goal (LTG) goal met 06/26. b hip strength = 5/5 LTG Duration 8 weeks return to sports Prison Goal (LTG) goal met 06/26 pt has been biking without knee pain. Progress Towards Goals Progress Towards Goals Goals Met Assessment Summary Assessment All goals have met. Pt is satisfied with her progress. Pt's knee to wall test for L ankle improved after lunges today. Educated pt to focus on B hip ER during breast stroke to reduce knee valgus. Physical Therapy Plan Discharge Physical Therapy Discharge Reasons Goals Met
== END 2019-08-20 09:12 ==
LOC: PHYS 14:30
PROVIDERS: PCP Family Medicine; Visit Provider Family Medicine
DX: M25.561 Pain in right knee (principal)
CPT/HCPCS: 97110; 97112; 97140; 97161; 97535

== ENCOUNTER → 2019-07-01 07:13 | Outpatient (CLI) | payer OTHER, SELFPAY ==
[2019-07-01 09:05] LABS: Alanine Aminotransferase 16 IU/L (<35); Albumin 4.4 g/dL (3.5-5.0); Albumin Globulin Ratio 1.4 (1.0-2.8); Alkaline Phosphatase 34 U/L (38-126); Aspartate Aminotransferase 27 IU/L (14-36); BUN Creatinine Ratio 13.8 (6-22); Bilirubin Total 0.8 mg/dL (0.2-1.3); Blood Urea Nitrogen 11 mg/dL (7-17); Calcium 9.5 mg/dL (8.4-10.2); Carbon Dioxide 28 mmol/L (22-32); Chloride 102 mmol/L (98-107); Cholesterol 226 mg/dL (140-199); Estimated Glomerular Filt Rate > 60.0 mL/min (>60); Globulin 3.1 g/dL (1.7-4.1); Glucose 84 mg/dL (70-100); HDL Cholesterol 59 mg/dL (40-60); HEMOLYSIS < 15 (0-50); LDL Cholesterol Calculated 150 mg/dL (<100); Potassium 4.5 mmol/L (3.4-5.1); Sodium 138 mmol/L (137-145); Total Protein 7.5 g/dL (6.3-8.2); Triglycerides 84 mg/dL (35-150)
== END ==
PROVIDERS: PCP Family Medicine; Visit Provider Family Medicine
DX: E78.5 Hyperlipidemia, unspecified (principal)
CPT/HCPCS: 36415; 80053; 80061

== ENCOUNTER → 2020-02-29 07:11 | Outpatient (CLI) | payer OTHER, SELFPAY ==
[2020-02-29 08:02] LABS: Add Manual Diff / Slide Review NO; Basophils Absolute Auto 100 /uL (0-100); Basophils Percent Auto 1.2 % (0-2); Eosinophils Absolute Auto 200 /uL (0-450); Eosinophils Percent Auto 4.2 % (2-4); Hematocrit 37.1 % (36-46); Hemoglobin 12.6 g/dL (12.0-16.0); Lymphocytes Absolute Auto 2100 /uL (1100-4500); Lymphocytes Percent Auto 37.7 % (25-40); Mean Corpuscular Hemoglobin 30.5 PG (26-34); Mean Corpuscular Volume 89.7 fL (80-100); Monocytes Absolute Auto 400 /uL (0-900); Monocytes Percent Auto 7.8 % (3-14); Neutrophils Absolute Auto 2800 /uL (1500-7000); Neutrophils Percent Auto 49.1 % (50-75); Platelet Count 275 X10^3/uL (150-400); Red Blood Cell Count 4.13 X10^6/uL (4.0-5.2); Red Cell Distribution Width 12.3 % (11.6-14.8); White Blood Cell Count 5.6 X10^3/uL (4.5-11.0)
[2020-02-29 08:23] LABS: Alanine Aminotransferase 15 IU/L (<35); Albumin Globulin Ratio 1.3 (1.0-2.8); Alkaline Phosphatase 34 U/L (38-126); Aspartate Aminotransferase 25 IU/L (14-36); BUN Creatinine Ratio 17.1 (6-22); Bilirubin Total 0.6 mg/dL (0.2-1.3); Blood Urea Nitrogen 13 mg/dL (7-17); Calcium 8.8 mg/dL (8.4-10.2); Carbon Dioxide 28 mmol/L (22-32); Chloride 104 mmol/L (98-107); Cholesterol 219 mg/dL (140-199); Estimated Glomerular Filt Rate > 60.0 mL/min (>60); Glucose 90 mg/dL (70-100); HDL Cholesterol 61 mg/dL (40-60); HEMOLYSIS < 15 (0-50); LDL Cholesterol Calculated 139 mg/dL (<100); Potassium 4.2 mmol/L (3.4-5.1); Sodium 135 mmol/L (137-145); Triglycerides 96 mg/dL (35-150)
== END ==
PROVIDERS: PCP Family Medicine; Referring Provider Family Medicine; Visit Provider Family Medicine
DX: Z00.00 Encounter for general adult medical examination without abnormal findings (principal); E78.5 Hyperlipidemia, unspecified
CPT/HCPCS: 36415; 80053; 80061; 84443; 85025

== ENCOUNTER → 2020-10-28 11:14 | Outpatient (CLI) | payer OTHER, SELFPAY ==
[2020-10-28] MEDS: COVID-19 VACC #1, MRNA(MOD) 100 MCG/0.5 ML VIAL IM (11:22)
== END ==
PROVIDERS: PCP Family Medicine; Visit Provider Internal Medicine
DX: Z23 Encounter for immunization (principal)
CPT/HCPCS: 0011A; 91301

== ENCOUNTER → 2020-11-25 13:24 | Outpatient (CLI) | payer OTHER, SELFPAY ==
[2020-11-25] MEDS: COVID-19 VACC #2, MRNA(MOD) 100 MCG/0.5 ML VIAL IM (13:37)
== END ==
PROVIDERS: PCP Family Medicine; Visit Provider Internal Medicine
DX: Z23 Encounter for immunization (principal)
CPT/HCPCS: 0012A; 91301

== ENCOUNTER → 2021-02-10 15:06 | Outpatient (CLI) | payer OTHER, SELFPAY ==
--- NOTE | 2021-02-10 15:07 | DI.MG.S_ITS ---
BILATERAL DIGITAL SCREENING MAMMOGRAM 3D/2D WITH CAD: 02/10/2021 CLINICAL: Routine screening. Comparison is made to exams dated: 10/21/2017 mammogram, 09/14/2016 mammogram, and 06/13/2015 mammogram - [facility]. The tissue of both breasts is extremely dense, which lowers the sensitivity of mammography. Current study was also evaluated with a Computer Aided Detection (CAD) system. No significant masses, calcifications, or other findings are seen in either breast. There has been no significant interval change. IMPRESSION: NEGATIVE There is no mammographic evidence of malignancy. A 1 year screening mammogram is recommended. This exam was interpreted at Station ID: [id number]. NOTE: For mammograms, a report in lay terms will be sent to the patient. Approximately 15% of breast malignancies will not be visualized mammographically. In the management of a palpable breast mass, a negative mammogram must not discourage biopsy of a clinically suspicious lesion. Electronically Signed By: Rei kohler/humza:02/10/2021 15:30:52 letter sent: Normal Exam ACR BI-RADS Category 1: Negative [id number]
== END ==
PROVIDERS: PCP Family Medicine; Referring Provider Family Medicine; Visit Provider Family Medicine
DX: Z12.31 Encounter for screening mammogram for malignant neoplasm of breast (principal)
CPT/HCPCS: 77063; 77067

== ENCOUNTER → 2021-04-17 07:07 | Outpatient (CLI) | payer OTHER, SELFPAY ==
[2021-04-17 08:18] LABS: Add Manual Diff / Slide Review NO; Basophils Absolute Auto 100 /uL (0-100); Basophils Percent Auto 1.2 % (0-2); Eosinophils Absolute Auto 200 /uL (0-450); Eosinophils Percent Auto 3.6 % (2-4); Hematocrit 39.7 % (36-46); Hemoglobin 13.3 g/dL (12.0-16.0); Lymphocytes Absolute Auto 2300 /uL (1100-4500); Lymphocytes Percent Auto 39.2 % (25-40); Mean Corpuscular HGB Conc 33.6 % (30-36); Mean Corpuscular Hemoglobin 30.1 PG (26-34); Mean Corpuscular Volume 89.6 fL (80-100); Monocytes Absolute Auto 400 /uL (0-900); Neutrophils Absolute Auto 3000 /uL (1500-7000); Platelet Count 335 X10^3/uL (150-400); Red Blood Cell Count 4.43 X10^6/uL (4.0-5.2); Red Cell Distribution Width 12.5 % (11.6-14.8)
[2021-04-17 08:54] LABS: Alanine Aminotransferase 15 IU/L (<35); Albumin 4.2 g/dL (3.5-5.0); Albumin Globulin Ratio 1.2 (1.0-2.8); Alkaline Phosphatase 36 U/L (38-126); Aspartate Aminotransferase 26 IU/L (14-36); BUN Creatinine Ratio 14.7 (6-22); Bilirubin Total 0.7 mg/dL (0.2-1.3); Blood Urea Nitrogen 11 mg/dL (7-17); Carbon Dioxide 24 mmol/L (22-32); Chloride 104 mmol/L (98-107); Cholesterol 243 mg/dL (140-199); Estimated Glomerular Filt Rate > 60.0 mL/min (>60); Globulin 3.4 g/dL (1.7-4.1); Glucose 95 mg/dL (70-100); HDL Cholesterol 59 mg/dL (40-60); HEMOLYSIS < 15 (0-50); LDL Cholesterol Calculated 164 mg/dL (<100); Potassium 4.4 mmol/L (3.4-5.1); Sodium 135 mmol/L (137-145); Total Protein 7.6 g/dL (6.3-8.2); Triglycerides 98 mg/dL (35-150)
[2021-04-17 14:28] LABS: TSH w/ Reflex to FT4 3.24 uIU/mL (0.47-4.68)
== END ==
PROVIDERS: PCP Family Medicine; Referring Provider Family Medicine; Visit Provider Family Medicine
DX: Z00.00 Encounter for general adult medical examination without abnormal findings (principal)
CPT/HCPCS: 36415; 80053; 80061; 84443; 85025

== ENCOUNTER → 2022-05-30 07:02 | Outpatient (CLI) | payer OTHER, SELFPAY ==
[2022-05-30 08:01] LABS: Add Manual Diff / Slide Review NO; Basophils Absolute Auto 100 /uL (0-100); Basophils Percent Auto 1.3 % (0-2); Eosinophils Absolute Auto 300 /uL (0-450); Eosinophils Percent Auto 6.6 % (2-4); Hematocrit 34.9 % (36-46); Lymphocytes Absolute Auto 2000 /uL (1100-4500); Lymphocytes Percent Auto 39.7 % (25-40); Mean Corpuscular HGB Conc 34.5 % (30-36); Mean Corpuscular Hemoglobin 30.3 PG (26-34); Mean Corpuscular Volume 87.9 fL (80-100); Monocytes Absolute Auto 400 /uL (0-900); Monocytes Percent Auto 7.6 % (3-14); Neutrophils Absolute Auto 2200 /uL (1500-7000); Neutrophils Percent Auto 44.8 % (50-75); Platelet Count 265 X10^3/uL (150-400); Red Blood Cell Count 3.97 X10^6/uL (4.0-5.2); Red Cell Distribution Width 12.8 % (11.6-14.8)
[2022-05-30 08:29] LABS: Alanine Aminotransferase 32 IU/L (<35); Albumin 4.2 g/dL (3.5-5.0); Albumin Globulin Ratio 1.4 (1.0-2.8); Alkaline Phosphatase 48 U/L (38-126); Aspartate Aminotransferase 29 IU/L (14-36); BUN Creatinine Ratio 11.3 (6-22); Bilirubin Total 0.6 mg/dL (0.2-1.3); Blood Urea Nitrogen 9 mg/dL (7-17); Calcium 9.1 mg/dL (8.4-10.2); Carbon Dioxide 28 mmol/L (22-32); Chloride 102 mmol/L (98-107); Cholesterol 222 mg/dL (140-199); Estimated Glomerular Filt Rate > 60 mL/min (>60); Globulin 3.1 g/dL (1.7-4.1); Glucose 93 mg/dL (70-100); HDL Cholesterol 58 mg/dL (40-60); HEMOLYSIS < 15 (0-50); LDL Cholesterol Calculated 156 mg/dL (<100); Potassium 4.1 mmol/L (3.4-5.1); Sodium 139 mmol/L (137-145); Total Protein 7.3 g/dL (6.3-8.2); Triglycerides 41 mg/dL (35-150)
[2022-05-30 08:46] LABS: Follicle Stimulating Hormone 62.9 mIU/mL; Luteinizing Hormone 40.9 mIU/mL
[2022-05-30 09:01] LABS: Thyroid Stimulating Hormone 2.02 uIU/mL (0.47-4.68)
== END ==
PROVIDERS: PCP Family Medicine; Referring Provider Family Medicine; Visit Provider Family Medicine
DX: Z00.00 Encounter for general adult medical examination without abnormal findings (principal); E78.5 Hyperlipidemia, unspecified; G43.909 Migraine, unspecified, not intractable, without status migrainosus; N95.1 Menopausal and female climacteric states
CPT/HCPCS: 36415; 80053; 80061; 83001; 83002; 84443; 85025

== ENCOUNTER → 2024-01-06 06:53 | Outpatient (CLI) | payer OTHER, SELFPAY ==
[2024-01-06 08:00] LABS: Add Manual Diff / Slide Review NO; Basophils Absolute Auto 100 /uL (0-100); Basophils Percent Auto 2.1 % (0-2); Eosinophils Absolute Auto 200 /uL (0-450); Eosinophils Percent Auto 4.6 % (2-4); Hematocrit 38.4 % (36-46); Hemoglobin 13.1 g/dL (12.0-16.0); Lymphocytes Absolute Auto 1900 /uL (1100-4500); Mean Corpuscular Hemoglobin 30.8 PG (26-34); Mean Corpuscular Volume 90.7 fL (80-100); Monocytes Absolute Auto 300 /uL (0-900); Monocytes Percent Auto 6.1 % (3-14); Neutrophils Absolute Auto 2100 /uL (1500-7000); Neutrophils Percent Auto 45.2 % (50-75); Platelet Count 314 X10^3/uL (150-400); Red Blood Cell Count 4.24 X10^6/uL (4.0-5.2); Red Cell Distribution Width 12.5 % (11.6-14.8); White Blood Cell Count 4.6 X10^3/uL (4.5-11.0)
[2024-01-06 08:29] LABS: Alanine Aminotransferase 15 IU/L (<35); Albumin 4.1 g/dL (3.5-5.0); Albumin Globulin Ratio 1.4 (1.0-2.8); Alkaline Phosphatase 40 U/L (38-126); Aspartate Aminotransferase 24 IU/L (14-36); BUN Creatinine Ratio 15.7 (6-22); Bilirubin Total 0.7 mg/dL (0.2-1.3); Blood Urea Nitrogen 13 mg/dL (7-17); Calcium 8.8 mg/dL (8.4-10.2); Carbon Dioxide 26 mmol/L (22-32); Chloride 105 mmol/L (98-107); Cholesterol 220 mg/dL (140-199); Estimated Glomerular Filt Rate > 60 mL/min (>60); Globulin 2.9 g/dL (1.7-4.1); Glucose 92 mg/dL (70-100); HDL Cholesterol 64 mg/dL (40-60); HEMOLYSIS < 15 (0-50); LDL Cholesterol Calculated 142 mg/dL (<100); Potassium 4.6 mmol/L (3.4-5.1); Sodium 136 mmol/L (137-145); Triglycerides 70 mg/dL (35-150)
[2024-01-06 08:32] LABS: HEMOLYSIS < 15 (0-50); Iron 136 ug/dL (37-170)
[2024-01-06 08:39] LABS: Vitamin D 25 Hydroxy (D3) 49.7 ng/mL (30.0-100.0)
[2024-01-06 08:43] LABS: Percent Iron Saturation 40 % (15-50); Total Iron Binding Capacity 339 ug/dL (265-497); Transferrin 247 mg/dL (206-381)
[2024-01-06 09:00] LABS: Ferritin 36 ng/mL (11-264)
[2024-01-07 06:52] LABS: Apolipoprotein B 117 mg/dL (<90)
[2024-01-08 19:21] LABS: Lipoprotein (a) 32.3 nmol/L (<75.0)
== END ==
PROVIDERS: Family Medicine; PCP Family Medicine; Referring Provider Family Medicine; Visit Provider Family Medicine
DX: Z00.00 Encounter for general adult medical examination without abnormal findings (principal); Z13.220 Encounter for screening for lipoid disorders; Z13.6 Encounter for screening for cardiovascular disorders; Z78.9 Other specified health status; D64.9 Anemia, unspecified; E78.00 Pure hypercholesterolemia, unspecified; Z30.41 Encounter for surveillance of contraceptive pills; Z86.39 Personal history of other endocrine, nutritional and metabolic disease
CPT/HCPCS: 36415; 80053; 80061; 82172; 82306; 82728; 83540; 83550; 83695; 85025

== ENCOUNTER → 2024-01-15 09:27 | Outpatient (CLI) | payer OTHER, SELFPAY ==
[2024-01-17 14:09] LABS: Fecal Immunochemical Test Negative (Negative)
== END ==
PROVIDERS: PCP Family Medicine; Referring Provider Family Medicine; Visit Provider Family Medicine
DX: Z12.11 Encounter for screening for malignant neoplasm of colon (principal)
CPT/HCPCS: 82274

== ENCOUNTER → 2024-05-11 07:55 | Outpatient (CLI) | payer OTHER, SELFPAY ==
--- NOTE | 2024-05-11 07:55 | DI.MG.S_ITS ---
BILATERAL DIGITAL SCREENING MAMMOGRAM 3D/2D WITH CAD: 05/11/2024 CLINICAL: Routine screening. Comparison is made to exams dated: 02/10/2021 mammogram, 10/21/2017 mammogram, and 09/14/2016 mammogram - [facility]. The breasts are extremely dense, which lowers the sensitivity of mammography (category d />75% glandular tissue). Current study was also evaluated with a Computer Aided Detection (CAD) system. No significant masses, calcifications, or other findings are seen in either breast. There has been no significant interval change. IMPRESSION: NEGATIVE There is no mammographic evidence of malignancy. A 1 year screening mammogram is recommended. Based on Tyrer-Cuzick model (a risk assessment model), the patient's lifetime risk is 20.7% and her 10 year risk is 5.9%. If a patient has an elevated risk, a more comprehensive evaluation should be considered and/or a referral to a genetic counselor. The [place] [employer], [place] [employer], and NCCN Guidelines advise the consideration of Breast MRI as an adjunct to screening mammography in patients whose Lifetime risk to develop breast cancer is 20% or higher. This exam was interpreted at Station ID: [id number]. NOTE: For mammograms, a report in lay terms will be sent to the patient. Approximately 15% of breast malignancies will not be visualized mammographically. In the management of a palpable breast mass, a negative mammogram must not discourage biopsy of a clinically suspicious lesion. Electronically Signed By: Rei kohler/humza:05/11/2024 18:04:38 letter sent: Normal Exam ACR BI-RADS Category 1: Negative
== END ==
PROVIDERS: PCP Family Medicine; Referring Provider Family Medicine; Visit Provider Family Medicine
DX: Z12.31 Encounter for screening mammogram for malignant neoplasm of breast (principal); R92.343 Mammographic extreme density, bilateral breasts
CPT/HCPCS: 77063; 77067

== ENCOUNTER → 2024-05-15 06:53 | Outpatient (CLI) | payer OTHER, SELFPAY ==
[2024-05-15 08:40] LABS: HEMOLYSIS < 15 (0-50)
[2024-05-15 08:51] LABS: Alanine Aminotransferase 14 IU/L (<35); Albumin 3.7 g/dL (3.5-5.0); Albumin Globulin Ratio 1.2 (1.0-2.8); Alkaline Phosphatase 34 U/L (38-126); Aspartate Aminotransferase 23 IU/L (14-36); BUN Creatinine Ratio 13.1 (6-22); Bilirubin Total 0.7 mg/dL (0.2-1.3); Blood Urea Nitrogen 11 mg/dL (7-17); Carbon Dioxide 25 mmol/L (22-32); Chloride 103 mmol/L (98-107); Estimated Glomerular Filt Rate > 60 mL/min (>60); Glucose 90 mg/dL (70-100); Potassium 4.7 mmol/L (3.4-5.1); Sodium 133 mmol/L (137-145); Total Protein 6.7 g/dL (6.3-8.2)
[2024-05-15 09:04] LABS: Free T4, Direct Thyroxine 0.93 ng/dL (0.78-2.19)
[2024-05-15 09:10] LABS: Hemoglobin A1C% w Est Avg Glu 5.4 % (4.0-6.0)
[2024-05-15 09:18] LABS: Thyroid Stimulating Hormone 2.83 uIU/mL (0.47-4.68)
[2024-05-15 18:32] LABS: Free T3, Triiodothyronine Free 3.84 pg/mL (2.77-5.27)
[2024-05-16 05:30] LABS: High Sensitivity CRP - Cardiac 3.1 mg/L (1.0-3.0)
[2024-05-16 06:09] LABS: Cortisol AM (Before 10AM) 25.4 ug/dL (4.46-22.7)
[2024-05-16 17:14] LABS: Anti Thyroglobulin Antibody <1.0 IU/mL (0.0-0.9)
[2024-05-17 07:10] LABS: Thyroid Peroxidase Antibodies 33 IU/mL (0-34)
[2024-05-17 12:11] LABS: Insulin Level Total 4.3 uIU/mL (2.6-24.9)
== END ==
PROVIDERS: PCP Family Medicine; Referring Provider Family Medicine; Visit Provider Family Medicine
DX: G43.109 Migraine with aura, not intractable, without status migrainosus (principal); G47.9 Sleep disorder, unspecified; E28.0 Estrogen excess; E78.00 Pure hypercholesterolemia, unspecified
CPT/HCPCS: 36415; 80053; 82533; 83036; 83525; 84439; 84443; 84481; 86140; 86376; 86800

== ENCOUNTER → 2024-10-26 08:02 | Outpatient (CLI) | payer OTHER, SELFPAY ==
[2024-10-26 09:04] LABS: Iron 157 ug/dL (37-170)
[2024-10-26 09:08] LABS: C-Reactive Protein Quant < 0.5 mg/dL (<1.0)
[2024-10-26 09:14] LABS: Total Iron Binding Capacity 330 ug/dL (265-497)
[2024-10-26 09:21] LABS: Free T4, Direct Thyroxine 0.98 ng/dL (0.78-2.19)
[2024-10-26 09:22] LABS: Follicle Stimulating Hormone 2.13 mIU/mL; Progesterone, Total 1.11 ng/mL
[2024-10-26 09:35] LABS: Cortisol Random 23.5 ug/dL; Thyroid Stimulating Hormone 3.16 uIU/mL (0.47-4.68)
[2024-10-26 09:37] LABS: Estradiol, Total 23.4 pg/mL
[2024-10-26 09:39] LABS: Ferritin 48 ng/mL (11-264); Testosterone 27.1 ng/dL (5.71-77.0)
[2024-10-30 15:36] LABS: Dehydroepiandrosterone (DHEA) 333 ng/dL (21-402)
== END ==
PROVIDERS: PCP Family Medicine; Visit Provider Naturopath
DX: N95.1 Menopausal and female climacteric states (principal); G43.809 Other migraine, not intractable, without status migrainosus; G47.00 Insomnia, unspecified; E61.1 Iron deficiency; Z79.890 Hormone replacement therapy
CPT/HCPCS: 36415; 82533; 82627; 82670; 82728; 83001; 83540; 83550; 84144; 84403; 84439; 84443; 86140

== ENCOUNTER → 2024-12-11 14:21 | Outpatient (CLI) | payer OTHER, SELFPAY ==
--- NOTE | 2024-12-11 14:22 | DI.RAD.S_ITS ---
PROCEDURE: XR DEXA AXIAL SKELETON INDICATIONS: Osteoporosis screening COMPARISON: None. FINDINGS: Lumbar Spine: Bone mineral density 1.109 g/cm2, T score 0.6, normal. Left Femoral Neck: Bone mineral density 0.876 g/cm2, T score 0.2, normal. Left Hip: Bone mineral density is 0.984 g/cm2, T score 0.3, normal. Fracture Risk Calculation (when applicable): 10-year fracture risk of a major osteoporotic fracture 7.8 percent and of a hip fracture 0.1 percent. (T score greater or equal to -1.0 to: NORMAL) (T score from -1.1 to -2.4: OSTEOPENIA) (T score less than or equal to -2.5: OSTEOPOROSIS) IMPRESSION: Normal bone mineral density. Follow-up guidelines as follows: Osteoporosis: Consider a repeat DEXA and Vertebral Fracture Assessment (VFA) exam in 2 years or sooner if medically necessary, to reassess this patient's status. Osteopenia: Consider a repeat DEXA in 2-3 years to reassess this patient's status, or if there is a new clinical indication. Normal: Consider a repeat DEXA in 5 years or sooner, or if there is a new clinical indication. All treatment decisions require clinical judgment and consideration of individual patient factors, including patient preferences, comorbidities, previous drug use, risk factors not captured in the FRAX model (e.g., frailty, falls, vitamin D deficiency, increased bone turnover, interval significant decline in bone density ) and possible under- or over-estimation of fracture risk by FRAX. In addition, the NOF Guide recommends that FDA-approved medical therapies be considered in postmenopausal women and men age >= 50 years with a: * Hip or vertebral (clinical or morphometric) fracture * T-score of <=-2.5 at the spine or hip * Ten-year fracture probability by FRAX of >= 3% for hip fracture or >=20% for major osteoporotic fracture. Dictated by: Rosario Fletcher M.D. on 12/13/2024 at 8:15 Approved by: Rosario Fletcher M.D. on 12/13/2024 at 8:16
== END ==
LOC: RAD 14:21
PROVIDERS: PCP Family Medicine; Referring Provider Family Medicine; Visit Provider Family Medicine
DX: Z00.00 Encounter for general adult medical examination without abnormal findings (principal); M85.89 Other specified disorders of bone density and structure, multiple sites; Z78.0 Asymptomatic menopausal state; S29.012A Strain of muscle and tendon of back wall of thorax, initial encounter
CPT/HCPCS: 77080

== ENCOUNTER → 2025-01-01 06:38 | Outpatient (CLI) | payer OTHER, SELFPAY ==
[2025-01-01 07:45] LABS: HEMOLYSIS < 15 (0-50); Iron 91 ug/dL (37-170)
[2025-01-01 07:48] LABS: C-Reactive Protein Quant 1.5 mg/dL (<1.0); Cholesterol 227 mg/dL (140-199); HDL Cholesterol 54 mg/dL (40-60); LDL Cholesterol Calculated 152 mg/dL (<100); Triglycerides 107 mg/dL (35-150)
[2025-01-01 07:57] LABS: Percent Iron Saturation 30 % (15-50); Total Iron Binding Capacity 302 ug/dL (265-497); Transferrin 245 mg/dL (206-381)
[2025-01-01 08:17] LABS: Cortisol AM (Before 10AM) 23.2 ug/dL (4.46-22.7)
[2025-01-01 08:21] LABS: Ferritin 61 ng/mL (11-264)
== END ==
PROVIDERS: PCP Family Medicine; Referring Provider Family Medicine; Visit Provider Family Medicine
DX: E78.5 Hyperlipidemia, unspecified (principal); E61.1 Iron deficiency; M19.90 Unspecified osteoarthritis, unspecified site; E27.49 Other adrenocortical insufficiency
CPT/HCPCS: 36415; 80061; 82533; 82728; 83540; 83550; 86140

== ENCOUNTER → 2025-04-15 14:13 | Outpatient (CLI) | payer OTHER, SELFPAY ==
[2025-04-15 21:41] LABS: Influenza A - CEPHEID Flu A NEGATIVE (NEGATIVE); Influenza B - CEPHEID Flu B NEGATIVE (NEGATIVE)
[2025-04-15 21:52] LABS: COVID-19 CEPHEID 4-PLEX PCR POSITIVE (Negative)
== END ==
PROVIDERS: PCP Family Medicine; Visit Provider Physician Assistant
DX: R05.1 Acute cough (principal); J02.9 Acute pharyngitis, unspecified
CPT/HCPCS: 87070; 87637

== ENCOUNTER → 2025-06-23 13:43 | Outpatient (CLI) | payer OTHER, SELFPAY | LOC: CAR 13:44 | PROVIDERS: PCP Family Medicine; Referring Provider Family Medicine; Visit Provider Family Medicine | DX: R42 Dizziness and giddiness (principal) | CPT/HCPCS: 93242 ==

== ENCOUNTER → 2025-07-16 06:31 | Outpatient (CLI) | payer OTHER, SELFPAY ==
[2025-07-16 07:34] LABS: Add Manual Diff / Slide Review NO; Hematocrit 39.1 % (36-46); Hemoglobin 13.1 g/dL (12.0-16.0); Lymphocytes Absolute Auto 2000 /uL (1100-4500); Mean Corpuscular HGB Conc 33.6 % (30-36); Mean Corpuscular Hemoglobin 30.1 PG (26-34); Mean Corpuscular Volume 89.5 fL (80-100); Platelet Count 289 X10^3/uL (150-400)
[2025-07-16 08:00] LABS: HEMOLYSIS < 15 (0-50); Iron 116 ug/dL (37-170)
[2025-07-16 08:05] LABS: Alanine Aminotransferase 21 IU/L (<35); Albumin 4.2 g/dL (3.5-5.0); Albumin Globulin Ratio 1.4 (1.0-2.8); Alkaline Phosphatase 42 U/L (38-126); Blood Urea Nitrogen 10 mg/dL (7-17); Calcium 8.8 mg/dL (8.4-10.2); Carbon Dioxide 25 mmol/L (22-32); Chloride 106 mmol/L (98-107); Cholesterol 227 mg/dL (140-199); Estimated Glomerular Filt Rate > 60 mL/min (>60); Globulin 3.0 g/dL (1.7-4.1); Glucose 91 mg/dL (70-99); HDL Cholesterol 54 mg/dL (40-60); HEMOLYSIS < 15 (0-50); Potassium 4.3 mmol/L (3.4-5.1); Sodium 138 mmol/L (137-145); Total Protein 7.2 g/dL (6.3-8.2); Triglycerides 66 mg/dL (35-150)
[2025-07-16 08:11] LABS: Transferrin 237 mg/dL (206-381)
[2025-07-16 08:34] LABS: Percent Iron Saturation 40 % (15-50); Total Iron Binding Capacity 293 ug/dL (265-497)
[2025-07-16 08:37] LABS: Ferritin 60 ng/mL (11-264)
[2025-07-16 08:50] LABS: Vitamin B12 > 1000 pg/mL (239-931)
== END ==
PROVIDERS: PCP Family Medicine; Referring Provider Family Medicine; Visit Provider Family Medicine
DX: D50.9 Iron deficiency anemia, unspecified (principal); R42 Dizziness and giddiness; R00.1 Bradycardia, unspecified; E53.8 Deficiency of other specified B group vitamins; E78.5 Hyperlipidemia, unspecified; E61.1 Iron deficiency
CPT/HCPCS: 36415; 80053; 80061; 82607; 82728; 83540; 83550; 85025